=== PATIENT | male | born 1945 | race Caucasian/White ===

== ENCOUNTER 2024-09-12 22:44 | Inpatient (IN) | payer MEDICARE, OTHER, SELFPAY ==
--- NOTE | 2024-09-12 17:52 | HPS.HSE ---
Family Physician
<ROSA Pacheco - Last Filed: 09/12/24 18:15>
-
Family Physician: Cm Carmichael
<Chao Mock PA-C - Last Filed: 09/13/24 02:14>
-
Family Physician: Cm Carmichael
Outpatient Mold Filler: Dr. Efren Magallon
Chief Complaint
<ROSA Pacheco - Last Filed: 09/12/24 18:15>
-
Chest pain/SOB
History of Present Illness
78-year-old male with past medical history significant for HTN, TIA in 2009, hyperlipidemia, and BPH presented to [facility] on 09/11 with complaints of chest pain and shortness of breath with minimal exertion. Patient reports that the
symptoms started a few weeks ago but has worsened in the past 2 days. He was admitted to [facility] and found to have negative troponins but was started on a heparin infusion. Left heart cath today revealed severe left main disease and
RCA disease so patient was transferred to [facility] for surgical evaluation.
Primary research assistant professor Dr. Efren Magallon
<Chao Mock PA-C - Last Filed: 09/13/24 02:14>
History of Present Illness
78-year-old male with past medical history significant for HTN, TIA in 2009, hyperlipidemia, and BPH presented to [facility] on 09/11 with complaints of chest pain and shortness of breath with minimal exertion. Patient reports that the
symptoms started a few weeks ago but has worsened in the past 2 days. Pt walks several miles in the morning on regular bases and noted pressure in the throat, which is followed by burping and belching and is relieved with rest. He was admitted to
[facility] and found to have negative troponins but was started on a heparin infusion.
Left heart cath 09/12/24 revealed severe 90% distal left main stenosis, which extends into ostia of LAD and L Circumflex. Ostium LAD with 90% stenosis with moderate stenosis in the prox to mid vessel. Circ has 99% subtotal occlusion at the ostium
extending from the LM with HÉCTOR -3 flow. RCA is medium to large vessel that serves large PDA and 3 small-med PLBs. There is 50-60% prox-mid stenosis.
Echo 09/12/24 revealed LVEF 45-50%, mild to moderately dilated left atrium. There is trivial anterior and posterior pericardial effusion. Mildly elevated pulmonary artery systolic pressure 31 mmHg. Mildly dilated aortic root, measuring 38 mm in
maximal diameter at the level of the coronary sinus of Valsalva. Grade I diastolic dysfunction.
Pt was sent to for evaluation for CABG. He has been on iv Heparin. He noted 1-2 chest pressure during his ride in an ambulance, which resolved during our conversation. He appears comfortable, good historian. He states that his ECG always showed
'extra beats' and that he follows with Dr. Magallon for dilated aorta and gets Echo every year.
Medical History
<ROSA Pacheco - Last Filed: 09/12/24 18:15>
Past Medical History
Past Medical History: Reports Other
Additional Past Medical History:
HTN
HLD
BPH
SUZANNE on CPAP
Allergies / Home Medications
Allergies reflects when Allergies were last updated in [facility].
Home Medications with original date entered in [facility]
<Chao Mock PA-C - Last Filed: 09/13/24 02:14>
Past Medical History
Additional Past Medical History:
HTN
HLD
TIA in 2009 (no deficits)
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
Asymptomatic PVCs
BPH
UTI complicated by [facility] 02/2022
SUZANNE on CPAP
Hepatitis A at 16 yo
Hx nearsyncope 01/2018
Hx colitis
Hx shingles
Past Surgical History: Reports Appendectomy (laparoscopic repair of ruptured appendix 04/2024)
Additional Past Surgical History:
R groin hernia repair 04/2014
Colonoscopy with polyps removed (benign)
Social History
Tobacco: Former Smoker (started at 18yo and quit at 30 yo)
Alcohol: None
Drug: None
Personal:
Living: Alone
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
Family History
Family History: CAD, Diabetes (type I diabetes on mother's side of the family) and Other (Mother of breast CA at age 47. Father dies at 71 yo from [place]. )
Allergies / Home Medications
Allergy/Medication List:
Allergies
Allergy/AdvReac Type Severity Reaction Status Date / Time
No Known Allergies Allergy Unverified 09/12/24 22:54
Home Medication List (Pre admission)
�Medication �Instructions �Recorded
aspirin 81 mg tablet 81 mg PO DAILY 09/12/24
losartan 100 mg tablet 100 mg PO DAILY 09/12/24
rosuvastatin 20 mg tablet 20 mg PO DAILY 09/12/24
tamsulosin 0.4 mg capsule 0.8 mg PO HS 09/12/24
Review of Systems
<Chao Mock PA-C - Last Filed: 09/13/24 02:14>
-
History Source: Patient and Transfer Record
A 12 point ROS was completed and negative except as noted: Yes
Constitutional: Reports No Symptoms
EENT: Reports No Symptoms
Respiratory: Reports No Symptoms
Cardiac: Reports Chest Pain
Abdomen/GI: Reports No Symptoms
: Reports No Symptoms
Musculoskeletal: Reports No Symptoms
Skin: Reports No Symptoms
Neurological: Reports No Symptoms
Endocrine: Reports No Symptoms
Hematologic/Lymphatic: Reports No Symptoms
Psych: Reports No Symptoms and Calm
Physical Exam
<Chao Mock PA-C - Last Filed: 09/13/24 02:14>
Physical Exam
General: Well Developed, Well Nourished, No Apparent Distress, Comfortable and Conversant
HEENT: NormoCephalic, Anicteric, Moist mucous membranes, Atraumatic and PERRLA
Cardiac: S1/S2, Regular Rhythm (with extra beats. No murmur or rub. No peripheral edema) and Other (No carotid bruits b/l)
GI: Soft, Non Tender, Non Distended and Normal Bowel Sounds (+ BM 09/12 and 09/11)
Genito-urinary: Clear Urine
Musculoskeletal: No Clubbing, No Cyanosis and No Edema
Skin: Warm and Dry
Neuro: Awake and AO x 3
Psych: Calm
Laboratory Results
<Chao Mock PA-C - Last Filed: 09/13/24 02:14>
-
PT 14.2 Sec (11.4-14.6) 09/13/24 00:00
INR 1.05 09/13/24 00:00
APTT 34.2 Sec (23.4-35.0) 09/13/24 00:00
Abnormal Lab Results
09/12/24 09/12/24 09/12/24
23:17 23:17 23:17
RBC 4.25 L 4.18 L
Hct 37.6 L 37.6 L
MCH 31.1 H
MPV 11.8 H
APTT
Total Bilirubin
09/12/24
23:17
RBC
Hct
MCH
MPV 11.7 H
APTT 36.7 H
Total Bilirubin 1.4 H
Data Reviewed
<ERAN López Last Filed: 09/13/24 02:14>
-
Medical Tests (Nuc Med, Echo, EKG etc): Report Reviewed by me
Lab Data: Labs Reviewed by me
Old Records: Reviewed
Impression/Plan
<ROSA Pacheco - Last Filed: 09/12/24 18:15>
-
IMPRESSION:
78 y/o male with PMHx listed above presents to on 09/12 from [facility] for CABG evaluation.
PLAN:
#CAD
-Patient's case will be discussed with attending physician. Further details regarding surgical timing intervention will be determined after attending physicians full evaluation
-Routine preoperative cardiothoracic surgery orders will be initiated.
-STS risk stratification score will be calculated after preoperative testing is complete
-Continue heparin gtt; monitor for CP
#SUZANNE
-Home CPAP HS
#BPH
-Continue Flomax
#Hypertension
-Continue metoprolol and valsartan
-Will need to stop valsartan 2 days before surgery
<Chao Mock PA-C - Last Filed: 09/13/24 02:14>
-
IMPRESSION:
78 y/o male with PMHx listed above presents to on 09/12 from [facility] for CABG evaluation.
PLAN:
#CAD
-Patient's case will be discussed with attending physician. Further details regarding surgical timing intervention will be determined after attending physicians full evaluation
-Routine preoperative cardiothoracic surgery orders will be initiated.
-STS risk stratification score will be calculated after preoperative testing is complete
-Continue heparin gtt; monitor for CP
-Continue ASA, Toprol, statin
#PVCs
-gave extra Lopressor. May consider increasing BB if hr tolerates
#SUZANNE
-Home CPAP HS
#BPH
-Continue Flomax
#Hypertension
-Continue metoprolol and valsartan
-Will need to stop valsartan 2 days before surgery
#Hyperlipidemia
-continue Lipitor
#Hx TIA 2010
-no neuro deficits
[2024-09-12 22:55] VITALS: BP 172/76
[2024-09-12 23:04] VITALS: BP 156/102
[2024-09-12 23:06] VITALS: BP 157/102; BMI 24.3
[2024-09-12] MEDS: FLOMAX PO (23:30)
[2024-09-12 23:39] LABS: Hematocrit 37.6 % (39.0-52.0); Hemoglobin 13.1 g/dL (13.0-18.0); Mean Corp Hgb Conc. 34.6 g/dL (33.0-37.0); Mean Corp Hgb Conc. 34.8 g/dL (33.0-37.0); Mean Corpuscular Hgb 30.8 pg (27.0-31.0); Mean Corpuscular Hgb 31.1 pg (27.0-31.0); Mean Corpuscular Volume 88.5 fL (80.0-94.0); Mean Platelet Volume 11.7 fL (7.4-10.4); Mean Platelet Volume 11.8 fL (7.4-10.4); Platelet Count 141 10^3/uL (130-400); Platelet Count 153 10^3/uL (130-400); Red Blood Cell Count 4.18 10^6/uL (4.70-6.10); Red Blood Cell Count 4.25 10^6/uL (4.70-6.10); Red Cell Dist. Width 13.2 % (11.5-14.5); Red Cell Dist. Width 13.4 % (11.5-14.5); White Blood Cell Count 6.7 10^3/uL (4.8-10.8); White Blood Cell Count 6.9 10^3/uL (4.8-10.8)
[2024-09-12 23:40] VITALS: BP 153/76
[2024-09-12 23:41] LABS: APTT 36.7 Sec (23.4-35.0)
[2024-09-12] MEDS: LOPRESSOR 12.5 MG PO (23:43)
[2024-09-12 23:54] LABS: ALT (SGPT) 22 U/L (0-50); AST (SGOT) 23 U/L (17-59); Albumin 4.2 g/dl (3.5-5.0); Alkaline Phosphatase 76 U/L (38-126); Blood Urea Nitrogen 13 mg/dl (9-20); Carbon Dioxide 27 mmol/L (22-30); Chloride 105 mmol/L (98-107); Estimated Creatinine Clearance 79 ml/min; Glucose 87 mg/dl (70-99); Potassium 3.9 mmol/L (3.5-5.1); Sodium 137 mmol/L (135-145); Total Bilirubin 1.4 mg/dl (0.2-1.3); Total Protein 6.6 g/dl (6.3-8.2); eGFR > 60.00
[2024-09-13] VITALS (11 sets, daily range): BP systolic 115–167; BP diastolic 52–113; PULSE 69–80; BMI 24.1
[2024-09-13 00:17] LABS: Urine Albumin Negative (Neg - Trace); Urine Bilirubin Negative (Negative); Urine Character Clear (Clear); Urine Color Yellow; Urine Glucose Negative (Negative); Urine Ketone Negative (Negative); Urine Leukocyte Negative (Negative); Urine Nitrite Negative (Negative); Urine Occult Blood Negative (Negative); Urine Specific Gravity 1.005 (<1.030); Urine Urobilinogen Negative (Neg - 1+)
[2024-09-13 00:27] LABS: INR 1.05; PT 14.2 Sec (11.4-14.6)
[2024-09-13 00:28] LABS: APTT 34.2 Sec (23.4-35.0)
[2024-09-13] MEDS: HEPARIN 25000 UNITS/250 ML IV ×2 (00:37→21:48)
--- NOTE | 2024-09-13 01:03 | PTCARENOTE ---
Patient received as transfer from [facility] at approximately 2255 on 09/12/24. Patient ambulated from EMS stretcher to the bed without difficulty. Denies chest pain at this time. Sinus rhythm with PACs, PVCs, and bigeminy on telemetry
monitor. Patient initially on room air with oxygen saturation 97%. Placed on 2L NC per CT Surgery PA-C and will be on CPAP HS. Initial labs drawn and sent. Heparin gtt initiated at 900 units/hr. Right radial cath site gauze with tegaderm C/D/I,
radial pulse palpable, area soft to palpation. U/A sent per order. MRSA swab sent. Bilateral blood pressures completed. Plan of care discussed with patient. Call jimenez within reach. Care ongoing.
[2024-09-13 06:41] LABS: Hematocrit 35.7 % (39.0-52.0); Hemoglobin 12.5 g/dL (13.0-18.0); Mean Corpuscular Hgb 31.3 pg (27.0-31.0); Mean Corpuscular Volume 89.3 fL (80.0-94.0); Mean Platelet Volume 11.5 fL (7.4-10.4); Platelet Count 141 10^3/uL (130-400); Red Cell Dist. Width 13.2 % (11.5-14.5); White Blood Cell Count 6.1 10^3/uL (4.8-10.8)
[2024-09-13 06:53] LABS: INR 1.05; PT 14.3 Sec (11.4-14.6)
[2024-09-13 06:54] LABS: APTT 39.7 Sec (23.4-35.0)
[2024-09-13 07:27] LABS: Blood Urea Nitrogen 13 mg/dl (9-20); Estimated Creatinine Clearance 79 ml/min; Glucose 93 mg/dl (70-99); eGFR > 60.00
[2024-09-13 07:28] LABS: ALT (SGPT) 19 U/L (0-50); AST (SGOT) 22 U/L (17-59); Albumin 3.7 g/dl (3.5-5.0); Alkaline Phosphatase 66 U/L (38-126); Calcium 8.7 mg/dl (8.4-10.2); Carbon Dioxide 26 mmol/L (22-30); Chloride 107 mmol/L (98-107); Direct Bilirubin 0.2 mg/dl (0.0-0.4); HDL Cholesterol 81 mg/dl; LDL Cholesterol, Calculated 52 mg/dl; Potassium 4.1 mmol/L (3.5-5.1); Sodium 138 mmol/L (135-145); Total Bilirubin 1.4 mg/dl (0.2-1.3); Total Cholesterol 143 mg/dl (50-199); Total Protein 5.9 g/dl (6.3-8.2); Triglyceride 53 mg/dl (10-149); Very Low Density Lipoprotein 10 mg/dl (0-30)
--- NOTE | 2024-09-13 09:50 | W.PN.CT ---
Today's Communication / Plan
-
Continue preoperative diagnostic testing
Surgical plan and timing TBD
Hold losartan 2 days prior to surgery
Assessment / Plan
-
Assessment:
Multivessel coronary artery disease status post cardiac cath at [facility].
Hypertension
Hyperlipidemia
BPH
TIA 2009
SUZANNE on CPAP at home
Mildly dilated aortic root 42 mm
History of colitis
History of shingles
Former smoker
Plan:
Preoperative diagnostic studies ordered
Will need to hold losartan 2 days prior to surgery
Surgical plan and timing TBD
Discussed patient care with: Cardiology and Nursing
Subjective
Procedure
Patient transferred from [facility] yesterday. Found to have severe left main coronary artery disease. Preoperative studies ordered. Plan for CABG next week.
Sitting up in bed no complaints. Denies chest pain shortness of breath.
-
Date of Service: September 13, 2024
Objective Data
-
Lab Results
09/13/24 06:30
09/13/24 06:30
PT 14.3 Sec (11.4-14.6) 09/13/24 06:30
INR 1.05 09/13/24 06:30
APTT 39.7 Sec (23.4-35.0) H 09/13/24 06:30
Vital Signs
Vital Signs
Temp Pulse Resp BP Pulse Ox
98.5 F 69 18 132/76 95
09/13/24 08:36 09/13/24 08:23 09/13/24 08:36 09/13/24 08:23 09/13/24 08:36
CT Intake/Output/Weight
09/12/24 09/13/24 09/13/24
18:59 06:59 18:59
Intake Total 63 / 63
Output Total 750 / 750
Balance -687 / -687
SaO2: 95
Physical Exam
-
General: Awake, Oriented and AOx3
Cardiovascular: Regular rate & rhythm
Respiratory: Clear
Extremities: No Edema
Data Reviewed
-
Lab Results: Results Reviewed
Medications: Active Meds Reviewed
Chest X-Ray: Report Reviewed
ECG: Report Reviewed
[2024-09-13] MEDS: LOW STRENGTH ASPIRIN 81 MG PO (10:12)
[2024-09-13] MEDS: TOPROL XL 25 MG PO (10:12)
[2024-09-13 10:16] LABS: Glycohemoglobin (HgbA1c) 5.3 % (4.0-5.6)
--- NOTE | 2024-09-13 10:17 | CON.CAR ---
Consultation
Consultation Request
Date/Time Consultation Requested: 09/13/24 7:30a
Date/Time Consultation Performed: 09/13/24 10:15a
Requesting Provider: ROSA Pacheco
Performing Provider: ROSA Jaimes for Dr. Soriano
Reason for Consultation: chest pain/CAD/CABG evaluation
Medical History
-
Chief Complaint: chest pain
History of Present Illness:
Mr. Vargas is a 78 yo male with HTN, HLD, TIA, BPH, who c/o chest pain and CARBONE and went to [facility] ER 09/11/24. LHC 09/12/24 showed severe distal LM disease extending into LAD and LCx and RCA disease. Echo 09/12/24 with LVEF 45-50%. He was transferred
to for CABG evaluation. He has been on IV Heparin and CT surgery plans for CABG next week. He denies any chest pain or CARBONE with rest.
Past Medical History
Past Medical History: Other (as above.)
Social History
Tobacco: Former Smoker
Alcohol: Occasional (1-2 drinks on weekends)
Living: Alone
Employment: Retired
Family History
Family History: Reviewed & Not Pertinent
Allergies / Home Medications
Allergy/AdvReac Type Severity Reaction Status Date / Time
No Known Allergies Allergy Unverified 09/12/24 22:54
�Medication �Instructions �Recorded �Confirmed �Type
aspirin 81 mg tablet 81 mg PO DAILY 09/12/24 09/12/24 History
losartan 100 mg tablet 100 mg PO DAILY 09/12/24 09/12/24 History
rosuvastatin 20 mg tablet 20 mg PO DAILY 09/12/24 09/12/24 History
tamsulosin 0.4 mg capsule 0.8 mg PO HS 09/12/24 09/12/24 History
Review of Systems
-
History Source: Patient
All other systems: Negative unless noted
Physical Exam
Vital Signs
Temp Pulse Resp BP Pulse Ox
98.5 F 69 18 132/76 95
09/13/24 08:36 09/13/24 08:23 09/13/24 08:36 09/13/24 08:23 09/13/24 09:55
Lab Results
09/13/24 06:30
09/13/24 06:30
Physical Exam
General: Well Developed, Well Nourished and No Apparent Distress
HEENT: Normocephalic, Anicteric and Moist Mucous Membranes
Respiratory: Clear and Non Labored Respirations
Cardiac: S1/S2 and Regular Rhythm
Breast: Deferred by me
GI: Soft, Non Tender and Normal Bowel Sounds
Genito-urinary: Clear Urine
Musculoskeletal: No Clubbing, No Cyanosis and No Edema
Skin: Warm and Dry
Neuro: AO x 3
Hematologic/Lymphatic: No Lymphadenopathy
Psych: Calm
Impression / Plan
-
CAD - multivessel CAD on cath 09/12/24.
- CT surgery evaluation, plan for CABG next week.
HTN - on Losartan at home.
- holding it prior to CABG.
- monitor BP, if elevated then consider BB.
HLD - on Crestor.
- check lipids.
TIA - in 2009, stable.
BPH - stable on Flomax.
Testing reviewed:
LHC 09/12/24: severe 90% distal left main stenosis, which extends into ostia of LAD and L Circumflex. Ostium LAD with 90% stenosis with moderate stenosis in the prox to mid vessel. Circ has 99% subtotal occlusion at the ostium extending from the LM
with HÉCTOR -3 flow. RCA is medium to large vessel that serves large PDA and 3 small-med PLBs. There is 50-60% prox-mid stenosis.
Echo 09/12/24: LVEF 45-50%, mild to moderately dilated left atrium, trivial anterior and posterior pericardial effusion. Mildly elevated PASP 31 mmHg. Mildly dilated aortic root, measuring 38 mm in maximal diameter at the level of the coronary sinus
of Valsalva. Grade I DD.
Data Reviewed
-
EKG: Tracing Personally Visualized and interpreted (SR with sinus arrhythmia, PVCs 64 bpm, nonspecific T wave abn)
Medical Tests (Nuc Med, Echo etc): Report Reviewed by me ([facility] 09/12/24: severe 90% distal LM, extends into ostia of LAD and L Cx. Ostium LAD with 90% stenosis with moderate stenosis in prox to mid vessel. Cx has 99% subtotal occlusion at the ostium
extending from the LM with HÉCTOR -3 flow. RCA is medium to large vessel abelardo) and Other (Echo 09/12/24: LVEF 45-50%, mild to moderately dilated left atrium, trivial anterior and posterior pericardial effusion. Mildly elevated PASP 31 mmHg. Mildly
dilated aortic root, measuring 38 mm in maximal diameter at the level of the coronary sinus of Valsalva. Grade I DD.)
[2024-09-13] MEDS: COZAAR 25 MG PO (10:18)
[2024-09-13] MEDS: FLUSH (NSS) 2 FLUSH IV (10:19)
--- NOTE | 2024-09-13 11:24 | PTCARENOTE ---
Received patient this morning resting in bed. Denies any chest pain or sob. Sent for CT of the chest and carotid u/s. IV heparin infusing as per protocol. Sitting oob in the chair now, call jimenez in reach, brother in visiting.
[2024-09-13 14:08] LABS: APTT 49.4 Sec (23.4-35.0)
--- NOTE | 2024-09-13 15:14 | CM ---
spoke to pt in room, he is prev indep, lives alone in a 2 story home with 10 steps to enter. he has a cpap he uses nightly. we discussed preop CABG teaching including sternal and driving restrictions. he has the ct surgery educ book. he is
agreeable to a f/u visit from the ct transitional care nurse after dc. his sister will be staying with his for at least a few days after dc. plan is for CABG 09/17, cm role explained and all questions answered.
[2024-09-13] MEDS: LIPITOR 40 MG PO (17:07)
--- NOTE | 2024-09-13 17:41 | W.PN.UPDATE ---
Update Note
Progress Note Update
STS RISK SCORE
Procedure Type:�Isolated CABG
Perioperative Outcome Estimate %
Operative Mortality 0.943%
Morbidity & Mortality 4.01%
Stroke 0.415%
Renal Failure 0.508%
Reoperation 2.27%
Prolonged Ventilation 1.78%
Deep Sternal Wound Infection 0.047%
Long Hospital Stay (>14 days) 2.45%
Short Hospital Stay (<6 days)* 56%
Clinical Summary
Planned Surgery: Isolated CABG, Urgent, First cardiovascular surgery
Demographics: 78 year old, White, male, 76.3kg, 178cm, BMI: 24.1 kg/m�
Lab Values: Creatinine: 0.8 mg/dL, Hematocrit: 35.7%, WBC Count: 6.1 10�/�L, Platelet Count: 953673 cells/�L
Substance Abuse: Former smoker
Risk Factors / Comorbidities: Hypertension
Pulmonary RF: Sleep Apnea
Cardiac Status: NYHA Class II, Ejection Fraction = 47%
Coronary Artery Disease: Stable Angina
Valve Disease: Trivial/Trace AR, Trivial/Trace MR, Mild TR
[2024-09-13] MEDS: NITROGLYCERIN PREMIX 250 IV (19:31)
[2024-09-13] MEDS: FLOMAX 0.8 MG PO (21:47)
[2024-09-13 21:50] LABS: APTT 79.7 Sec (23.4-35.0)
[2024-09-14] VITALS (13 sets, daily range): BP systolic 106–169; BP diastolic 64–97; PULSE 77; BMI 24.2; BMI 24.3
--- NOTE | 2024-09-14 01:07 | W.PN.CT ---
Addendum entered and electronically signed by Juve Yoder MD 09/14/24 09:45:
I saw and examined the patient.
The PA's note was reviewed and I agree with the note.
Comment:
Tentatively for CABG on Monday second case
Continue heparin and ntg gtts
Monitor for any CP
Original Note:
Today's Communication / Plan
-
Plan:
-after coming from the bathroom around 7 pm, pt had 1/10 CP with burping, which is same as his sxs at home after exertion. BP was 160s. CP resolved spontaneously after 2-3 min. Started iv Nitro. Continue iv Heparin
-preoperative diagnostic studies ordered
- Carotids <50% b/l.
- Chest CT: No acute disease of the chest. Small pericardial effusion. Overall moderate atherosclerotic vascular disease, greatest in the coronary vessels.
Bilateral calcified and dense pulmonary nodules consistent with benign adenomatous disease.
Additional noncalcified solid bilateral pulmonary nodules. Likely benign. Possibly noncalcified granulomas. Too small for PET imaging. Continued surveillance recommended.
-Losartan last dose today- then hold for surgery
-plans for CABG tentatively on 09/[address] Garcia
Assessment / Plan
-
Assessment:
- Multivessel coronary artery disease- status post cardiac cath at [facility] [address] [facility].
- Left heart cath 09/12/24 revealed severe 90% distal left main stenosis, which extends into ostia of LAD and L Circumflex. Ostium LAD with 90% stenosis with moderate stenosis in the prox to mid vessel. Circ has 99% subtotal
occlusion at the ostium extending from the LM with HÉCTOR -3 flow. RCA is medium to large vessel that serves large PDA and 3 small-med PLBs. There is 50-60% prox-mid stenosis
- EF 45-50%
- Hypertension
- Hyperlipidemia
- BPH
- TIA 2010
- SUZANNE, on CPAP at home
- Mildly dilated aortic root 38 mm by Echo 09/12/24 at [facility]
- History of colitis
- History of shingles
- Former smoker
Discussed patient care with: Nursing and Care Team
Subjective
Procedure
Patient transferred from [facility] yesterday. Found to have severe left main coronary artery disease. Preoperative studies ordered. Plan for CABG next week.
Sitting up in bed no complaints. Denies chest pain shortness of breath.
-
Date of Service: September 14, 2024
Objective Data
-
Lab Results
09/13/24 06:30
09/13/24 06:30
PT 14.3 Sec (11.4-14.6) 09/13/24 06:30
INR 1.05 09/13/24 06:30
APTT 79.7 Sec (23.4-35.0) H 09/13/24 21:31
Vital Signs
Vital Signs
Temp Pulse Resp BP Pulse Ox
98.6 F 57 16 115/52 96
09/13/24 22:28 09/13/24 22:28 09/13/24 22:28 09/13/24 22:28 09/13/24 22:28
CT Intake/Output/Weight
09/13/24 09/13/24 09/14/24
06:59 18:59 06:59
Intake Total 63 / 63 960 / 960
Output Total 750 / 750 1675 / 1875 200 / 1875
Balance -687 / -687 -715 / -915 -200 / -915
SaO2: 96
Physical Exam
-
General: Awake and AOx3
Cardiovascular: Regular rate & rhythm, No Murmurs and No Rub
Respiratory: Clear
Extremities: No Edema
Abdomen: soft, nontender, nondistended
Data Reviewed
-
Lab Results: Results Reviewed
Medications: Active Meds Reviewed
Chest X-Ray: Report Reviewed and Image Reviewed
ECG: Report Reviewed and Image Reviewed
--- NOTE | 2024-09-14 01:55 | PTCARENOTE ---
assumed care at 1900, pt AOX3, tele reading NSR, PVCs, bigeminy in the 50s-60s. Pt. immediately reporting 1/10 chest pressure and burping, similar to symptoms that brought him to [facility] in first place. Symptoms relieved after 2-[address] OBED Mock notified. Nitro gtt started on patient. Heparin gtt at 1300u/hr, PTT drawn at 2130: therapeutic x1, next PTT at 4am. This RN discussed POC with pt. Pt. verbalizes understanding. Call jimenez within reach. Continuing to
monitor at this time.
[2024-09-14 04:08] LABS: APTT 108.4 Sec (23.4-35.0)
[2024-09-14] MEDS: COZAAR 25 MG PO (07:57)
[2024-09-14] MEDS: TOPROL XL 25 MG PO (07:57)
[2024-09-14] MEDS: LOW STRENGTH ASPIRIN 81 MG PO (07:57)
--- NOTE | 2024-09-14 14:40 | W.PN.CD ---
Today's Communication / Plan
-
CABG Monday next week
Impression / Plan
-
CAD - multivessel CAD on cath 09/12/24.
- CT surgery evaluation, plan for CABG next week.
- throat discomfort overnight nitro gtt started feeling improved
HTN - on Losartan at home.
- holding it prior to CABG.
- monitor BP, if elevated then consider BB.
HLD - on Crestor.
- check lipids.
TIA - in 2009, stable.
BPH - stable on Flomax.
Subjective: Feels OK today
Testing reviewed:
LHC 09/12/24: severe 90% distal left main stenosis, which extends into ostia of LAD and L Circumflex. Ostium LAD with 90% stenosis with moderate stenosis in the prox to mid vessel. Circ has 99% subtotal occlusion at the ostium extending from the LM
with HÉCTOR -3 flow. RCA is medium to large vessel that serves large PDA and 3 small-med PLBs. There is 50-60% prox-mid stenosis.
Echo 09/12/24: LVEF 45-50%, mild to moderately dilated left atrium, trivial anterior and posterior pericardial effusion. Mildly elevated PASP 31 mmHg. Mildly dilated aortic root, measuring 38 mm in maximal diameter at the level of the coronary sinus
of Valsalva. Grade I DD.
Physical Exam
Vital Signs/Labs
Vital Signs
Temp Pulse Resp BP Pulse Ox
98 F 74 18 113/69 100
09/14/24 12:03 09/14/24 07:48 09/14/24 12:03 09/14/24 07:48 09/14/24 12:03
09/13/24 09/14/24 09/15/24
06:59 06:59 06:59
Actual Weight 168 lb 3.403 oz 168 lb 6.931 oz 169 lb 1.513 oz
09/13/24 06:30
09/13/24 06:30
PT 14.3 Sec (11.4-14.6) 09/13/24 06:30
INR 1.05 09/13/24 06:30
APTT 108.4 Sec (23.4-35.0) H 09/14/24 03:13
Triglycerides 53 mg/dl (10-149) 09/13/24 06:30
LDL Cholesterol, Calc 52 mg/dl 09/13/24 06:30
VLDL Cholesterol, Calc 10 mg/dl (0-30) 09/13/24 06:30
HDL Cholesterol 81 mg/dl 09/13/24 06:30
Physical Exam
Constitutional: No acute distress and Comfortable
EENT: Anicteric
Cardiovascular: Rhythm & rate is regular and Pedal edema present (trace)
Respiratory: Respiratory effort normal and Lungs clear to auscul.
GI: Soft
Neuro/Psych: AO x 3
Data Reviewed
-
Date of Service: September 14, 2024
EKG: Tracing Personally Visualized and interpreted (sr)
Echo: Report Reviewed by me
Labs: Labs Reviewed by me
[2024-09-14] MEDS: HEPARIN 25000 UNITS/250 ML IV (15:17)
--- NOTE | 2024-09-14 16:43 | PTCARENOTE ---
assessment stable as documented, no complaints throughout day. Pt OOB most of day with many visitors.
[2024-09-14] MEDS: LIPITOR 40 MG PO (17:28)
[2024-09-14] MEDS: NITROGLYCERIN PREMIX 250 IV (19:45)
--- NOTE | 2024-09-14 20:17 | PTCARENOTE ---
pt. received at change of shift. pt seen and assessed in room. AOx3, tele reading NSR w PVCs in the 70s. no complaints of pain at this time. heparin gtt continuing to run at 1300u/hr. next PTT with morning labs. this RN discussed POC with pt, pt
verbalizes understanding. call jimenez within reach. continuing to monitor at this time.
--- NOTE | 2024-09-14 20:37 | PTCARENOTE ---
nitro gtt restarted per order. titrating per order. pt. verbalizes understanding for restarting nitro gtt.
[2024-09-14] MEDS: FLOMAX 0.8 MG PO (21:10)
[2024-09-15] VITALS (10 sets, daily range): BP systolic 112–157; BP diastolic 49–80; BMI 24.2; BMI 24.3
[2024-09-15 04:31] LABS: Hematocrit 35.3 % (39.0-52.0); Mean Corpuscular Hgb 30.6 pg (27.0-31.0); Mean Corpuscular Volume 90.1 fL (80.0-94.0); Platelet Count 141 10^3/uL (130-400); Red Blood Cell Count 3.92 10^6/uL (4.70-6.10); Red Cell Dist. Width 13.2 % (11.5-14.5); White Blood Cell Count 6.9 10^3/uL (4.8-10.8)
[2024-09-15 04:39] LABS: APTT 110.6 Sec (23.4-35.0)
[2024-09-15 05:10] LABS: Blood Urea Nitrogen 20 mg/dl (9-20); Calcium 8.8 mg/dl (8.4-10.2); Carbon Dioxide 23 mmol/L (22-30); Chloride 106 mmol/L (98-107); Estimated Creatinine Clearance 69 ml/min; Glucose 90 mg/dl (70-99); Magnesium 2.2 mg/dl (1.6-2.3); Potassium 3.7 mmol/L (3.5-5.1); Sodium 137 mmol/L (135-145); eGFR > 60.00
--- NOTE | 2024-09-15 05:56 | W.PN.CT ---
Addendum entered and electronically signed by Juve Yoder MD 09/15/24 11:07:
CARDIAC SURGERY ATTENDING:
I had a long conversation with Mr. Vargas at his bedside. His brother was present during our conversations. We reviewed his coronary pathology, discussed the proposed operative interventions, reviewed the operative procedure in great detail,
discussed the periprocedural risks (including, but not limited to, , stroke, FL, arrhythmia, PNA, WILLIAM/F, bleeding, and infection), reviewed the expected in-hospital postprocedural course, and discussed expected outpatient recovery. All
questions were answered to the best of my abilities. The patient is agreeable to proceed. I will plan for operative intervention tomorrow 09/16/2024 as second case. I anticipate CABG x 3-4 with KE to LAD, GSV to OM, and GSV to distal right/PDA.
His second and third diagonal branches will be inspected intraoperatively for the potential of an additional bypass to 1 of these 2 vessels.
Please call with any questions or concerns.
Thank you for the opportunity to participate in the care of this kind patient.
Juve Yoder MD
[phone]
Addendum entered and electronically signed by Juve Yoder MD 09/15/24 09:40:
I saw and examined the patient.
The PA's note was reviewed and I agree with the note.
Comment:
Continue NTG and Heparin
OR for CABG tomorrow 2nd case
Original Note:
Today's Communication / Plan
-
-No overnight events
-Nitro drip had been titrated off for pain in the chest. Throat discomfort again occurred this evening which resolved after nitro drip restarted. Reinforced with nursing to keep nitro infusion ongoing unless otherwise specified
-Continue heparin drip
-Losartan last dose 09/14, will plan to titrate nitro for blood pressure goal for now
-Appreciate ongoing cardiology recommendations
-plans for CABG tentatively on 09/[address] Garcia unless clinical course dictates otherwise
Assessment / Plan
-
Assessment:
- Multivessel coronary artery disease- status post cardiac cath at [facility].
- Left heart cath 09/12/24 revealed severe 90% distal left main stenosis, which extends into ostia of LAD and L Circumflex. Ostium LAD with 90% stenosis with moderate stenosis in the prox to mid vessel. Circ has 99% subtotal
occlusion at the ostium extending from the LM with HÉCTOR -3 flow. RCA is medium to large vessel that serves large PDA and 3 small-med PLBs. There is 50-60% prox-mid stenosis
- EF 45-50%
- Hypertension
- Hyperlipidemia
- BPH
- TIA 2010
- SUZANNE, on CPAP at home
- Mildly dilated aortic root 38 mm by Echo 09/12/24 at [facility]
- History of colitis
- History of shingles
- Former smoker
Subjective
-
Date of Service: September 15, 2024
Objective Data
-
Lab Results
09/15/24 04:17
09/15/24 04:17
PT 14.3 Sec (11.4-14.6) 09/13/24 06:30
INR 1.05 09/13/24 06:30
APTT 110.6 Sec (23.4-35.0) H 09/15/24 04:17
Vital Signs
Vital Signs
Temp Pulse Resp BP Pulse Ox
98.3 F 64 20 112/49 98
09/15/24 04:13 09/15/24 05:15 09/15/24 04:13 09/15/24 04:00 09/15/24 04:13
CT Intake/Output/Weight
09/14/24 09/14/24 09/15/24
06:59 18:59 06:59
Intake Total 96 / 1056 200 / 200
Output Total 300 / 1975 500 / 1450 950 / 1450
Balance -204 / -919 -300 / -1250 -950 / -1250
SaO2: 98
Physical Exam
-
General: Awake, Oriented and AOx3
Cardiovascular: Regular rate & rhythm, No Murmurs and No Rub
Respiratory: Clear and Equal
Extremities: No Edema and No Erythema
Data Reviewed
-
Lab Results: Results Reviewed
Medications: Active Meds Reviewed
Chest X-Ray: Report Reviewed
ECG: Report Reviewed
[2024-09-15] MEDS: LOW STRENGTH ASPIRIN 81 MG PO (08:16)
[2024-09-15] MEDS: TOPROL XL 25 MG PO (08:16)
[2024-09-15] MEDS: HEPARIN 25000 UNITS/250 ML IV (11:36)
--- NOTE | 2024-09-15 15:13 | PTCARENOTE ---
received patient this am, monitor shows NSR with KRISTA hernandez. patient has many visitors throughout the day, surgeon was in speaking with patient as well as anesthesia. type and screen drawn and sent to lab.IV heparin @ 1300units/hr and IV
nitroglycerin @ 5mcg/min via left arm without difficulties.
[2024-09-15] MEDS: LIPITOR 40 MG PO (17:11)
--- NOTE | 2024-09-15 20:00 | PTCARENOTE ---
report received from IVU RN, received pt into room 2262. VSS. pt AAOx4. denies any pain at this time. heparin gtt infusing @ 13,000 units/kg/hr. Nitro gtt infusing @ 5mcg. B/L radial and DP pulses palpable, heart tones clear. B/L breath sounds
present. POX 97% on room air. skin CDI. PIV x3 intact and patent. see worklist for full assessment, VS, and interventions. pt resting comfortably in bed w call jimenez in reach.
--- NOTE | 2024-09-15 21:00 | PTCARENOTE ---
clip prep completed. pt given complete bed bath w CHG surgical soap. gown, linens, and electrodes changed.
[2024-09-15] MEDS: FLOMAX 0.8 MG PO (21:15)
[2024-09-16] VITALS (22 sets, daily range): BP systolic 79–145; BP diastolic 54–78; PULSE 63; BMI 24.2
--- NOTE | 2024-09-16 05:30 | PTCARENOTE ---
no changes in assessment, VSS. SR w PVCs. POX 99% on room air. Heparin gtt and Nitro gtt maintained. no CP. AM labs drawn and sent. 2nd bath given w CHG surgical wipes. pt wiped w CHG cloths. gown, linens, and electrodes changed. pre-op meds given.
pt sleeping between care.
[2024-09-16] MEDS: LOPRESSOR 25 MG PO (05:37)
[2024-09-16] MEDS: MAGNESIUM OXIDE 500 MG PO (05:37)
[2024-09-16] MEDS: PROTONIX 40 MG PO (05:37)
[2024-09-16] MEDS: BACTROBAN 2% OINTMENT 1 APPLIC NASAL ×2 (05:40→21:11)
[2024-09-16 06:00] LABS: Hemoglobin 11.2 g/dL (13.0-18.0); Mean Corpuscular Hgb 31.1 pg (27.0-31.0); Mean Corpuscular Volume 88.9 fL (80.0-94.0); Mean Platelet Volume 12.1 fL (7.4-10.4); Platelet Count 136 10^3/uL (130-400); Red Cell Dist. Width 13.2 % (11.5-14.5); White Blood Cell Count 6.4 10^3/uL (4.8-10.8)
[2024-09-16 06:04] LABS: APTT 96.7 Sec (23.4-35.0)
[2024-09-16 06:55] LABS: Blood Urea Nitrogen 20 mg/dl (9-20); Calcium 9.3 mg/dl (8.4-10.2); Carbon Dioxide 25 mmol/L (22-30); Chloride 107 mmol/L (98-107); Estimated Creatinine Clearance 69 ml/min; Glucose 89 mg/dl (70-99); Potassium 4.2 mmol/L (3.5-5.1); Sodium 137 mmol/L (135-145); eGFR > 60.00
--- NOTE | 2024-09-16 08:20 | PTCARENOTE ---
Received pt from power and recovery shift engineer RN; Pt AAOx3; NSR PACs on monitor and VSS; PIV x3 all patent; Heparin and Nitro infusing see flow sheet for details; lungs clear; IS to 2000; positive bowel sounds; pt voiding yellow urine; palpable pulses throughout;
trace ankle edema; pt NPO awaiting CVOR; see nursing documentation for further details.
--- NOTE | 2024-09-16 08:20 | CM ---
Reviewed chart. Mr. Vargas is in the operating room today. Prior to admission he resides in a two story home with ten steps to enter. Prior to admission he was independent with ambulation and adls. He has a CPAP Machine at home. His sister will
stay with him a few days at home to assist in his care if needed. Medical work-up in progress. The discharge plan is to return home with his sister staying a few days and a home visit by the Transitional Care Nurse when medically stable.
[2024-09-16] MEDS: HEPARIN 25000 UNITS/250 ML IV (08:28)
[2024-09-16] MEDS: LOW STRENGTH ASPIRIN PO (09:03)
[2024-09-16] MEDS: TOPROL XL PO (09:03)
--- NOTE | 2024-09-16 12:23 | PTCARENOTE ---
Report given to CVOR RN; pt transferred to CVOR via bed.
[2024-09-16 13:00] LABS: Urine Albumin 1+ (Neg - Trace); Urine Bilirubin Negative (Negative); Urine Character Clear (Clear); Urine Color Yellow; Urine Glucose Negative (Negative); Urine Ketone Negative (Negative); Urine Leukocyte Negative (Negative); Urine Nitrite Negative (Negative); Urine Occult Blood Negative (Negative); Urine Urobilinogen Negative (Neg - 1+)
[2024-09-16 13:16] LABS: ACT+ - POC 123 Seconds (82-134)
[2024-09-16 14:01] LABS: Urine Amorphous Seen
[2024-09-16 14:02] LABS: Urine Red Blood Cell 0-2 /HPF (0-2); Urine White Cell 0-2 /HPF (0-5)
[2024-09-16 14:03] LABS: Urine Granular Cast 0-2 /LPF (0)
[2024-09-16 14:42] LABS: B.E. - POC -0.5 mmol/L; Glucose - POC 94 mg/dl (70-99); HCO3 - POC 24 mmol/L (21-28); Hematocrit - POC 31 % PCV (42-52); Hemodilution- POC No; Hemoglobin Calculated - POC 10.6; Ionized Calcium - POC 1.31 mmol/L (1.15-1.33); Lactate - POC 0.52 mmol/L (0.36-0.75); O2 Saturation %Calculated-POC 99.8 % (94-98); PCO2 - POC 38 mmHg (35-48); PO2 - POC 241 mmHg (83-108); Sodium - POC 140 mmol/L (136-145); Specimen Type - POC Arterial; pH - POC 7.41 (7.35-7.45)
[2024-09-16 14:47] LABS: ACT+ - POC 422 Seconds (82-134)
[2024-09-16 14:57] LABS: ACT+ - POC 482 Seconds (82-134)
[2024-09-16 15:28] LABS: ACT+ - POC 427 Seconds (82-134)
[2024-09-16 15:36] LABS: B.E. - POC 1.2 mmol/L; Glucose - POC 97 mg/dl (70-99); HCO3 - POC 25 mmol/L (21-28); Hematocrit - POC 30 % PCV (42-52); Hemodilution- POC No; Hemoglobin Calculated - POC 10.3; Ionized Calcium - POC 1.26 mmol/L (1.15-1.33); Lactate - POC 0.73 mmol/L (0.36-0.75); O2 Saturation %Calculated-POC 99.9 % (94-98); PCO2 - POC 38 mmHg (35-48); PO2 - POC 249 mmHg (83-108); Sodium - POC 138 mmol/L (136-145); Specimen Type - POC Arterial; pH - POC 7.43 (7.35-7.45)
[2024-09-16 15:44] LABS: ACT+ - POC 609 Seconds (82-134)
[2024-09-16 16:30] LABS: ACT+ - POC 533 Seconds (82-134)
[2024-09-16 17:00] LABS: B.E. - POC -0.9 mmol/L; Glucose - POC 182 mg/dl (70-99); HCO3 - POC 26 mmol/L (21-28); Hematocrit - POC 32 % PCV (42-52); Hemodilution- POC Yes; Ionized Calcium - POC 1.07 mmol/L (1.15-1.33); Lactate - POC 0.33 mmol/L (0.36-0.75); O2 Saturation %Calculated-POC 99.9 % (94-98); PCO2 - POC 55 mmHg (35-48); PO2 - POC 338 mmHg (83-108); Potassium - POC 4.5 mmol/L (3.5-5.1); Sodium - POC 138 mmol/L (136-145); Specimen Type - POC Arterial; pH - POC 7.29 (7.35-7.45)
[2024-09-16 17:15] LABS: ACT+ - POC 539 Seconds (82-134)
[2024-09-16 17:31] LABS: B.E. - POC -0.8 mmol/L; Glucose - POC 166 mg/dl (70-99); HCO3 - POC 24 mmol/L (21-28); Hematocrit - POC 28 % PCV (42-52); Hemodilution- POC Yes; Hemoglobin Calculated - POC 9.4; Ionized Calcium - POC 1.09 mmol/L (1.15-1.33); Lactate - POC 1.45 mmol/L (0.36-0.75); O2 Saturation %Calculated-POC 99.8 % (94-98); PCO2 - POC 39 mmHg (35-48); PO2 - POC 231 mmHg (83-108); Potassium - POC 3.9 mmol/L (3.5-5.1); Sodium - POC 140 mmol/L (136-145); Specimen Type - POC Arterial; pH - POC 7.39 (7.35-7.45)
[2024-09-16 17:44] LABS: ACT+ - POC 539 Seconds (82-134)
[2024-09-16 18:04] LABS: B.E. - POC -2.1 mmol/L; Glucose - POC 132 mg/dl (70-99); HCO3 - POC 23 mmol/L (21-28); Hematocrit - POC 30 % PCV (42-52); Hemodilution- POC Yes; Hemoglobin Calculated - POC 10.3; Ionized Calcium - POC 1.08 mmol/L (1.15-1.33); Lactate - POC 2.06 mmol/L (0.36-0.75); O2 Saturation %Calculated-POC 99.9 % (94-98); PCO2 - POC 37 mmHg (35-48); PO2 - POC 281 mmHg (83-108); Potassium - POC 3.7 mmol/L (3.5-5.1); Sodium - POC 140 mmol/L (136-145); Specimen Type - POC Arterial; pH - POC 7.39 (7.35-7.45)
[2024-09-16 18:07] LABS: ACT+ - POC 101 Seconds (82-134)
--- NOTE | 2024-09-16 18:32 | W.CVOR.SURPR ---
CVOR Surgeon Immed Pre Op
-
I have examined this patient prior to performance of the scheduled procedure.
The patient's condition is unchanged from the time of the dictated/written History and
Physical and the patient is able to undergo the scheduled procedure.
--- NOTE | 2024-09-16 18:33 | W.IMMPOSTOP ---
Addendum entered and electronically signed by Juve Yoder MD 09/16/24 19:03:
[id number]
Original Note:
Surgical Immed Post Op Note
-
CARDIAC SURGERY OPERATIVE NOTE:
Preoperative Dx:
MVCAD including significant LM CAD
Unstable angina
Postoperative Dx:
Same
Procedure:
1) Median sternotomy
2) Takedown of KE (narrow pedicle)
3) Endoscopic/partial open harvest of RLE GSV
4) Endoscopic/partial open harvest of LLE GSV
5) CABG x 4 (KE to LAD, GSV to D3, GSV to OM1, GSV to RPDA)
Surgeon:
Juve Yoder M.D.
Assistants:
Vivek PetersonABharath-CBharath; export sales assistant
Pierce Castle P.A.-C.; endoscopic/partial open harvest/prep of B/L GSVs, closure; export sales assistant; [id number] closure of sternotomy
Anesthesia:
Julien Pham M.D. and Cm Ellis CBharathR.N.A.
Perfusion:
Chaitanya GallowayC.P.; XC: 96min, CPB 140min
Findings:
KE was healthy conduit w/ very brisk blood flow, ELD 3.5mm
GSV was reasonable conduit w/ several sections w/ varicosities (excluded) and variable wall thickness, ELD 3.5-4.5mm
LAD was visible on the epicardial surface w/ scattered calcifications; ELD 3.0mm at distal midpoint anastomosis
D3 was visible on the epicardial surface w/ scattered calcifications; ELD 2.0mm
OM1 was visible on the epicardial surface w/ scattered calcifications; ELD 3.5mm
RPDA was visible on the epicardial surface w/ scattered calcificaitons; ELD 2.75mm
JUNI: LVEF 40-50%, mild global hypokinesis, mild MR, mild TR, trace AI, pericardial effusion
JUNI-post:LVEF 55-60%, trace MR
Excellent flow in all grafts on transit-time U/S flow probe assessment
Complications:
None
Transfusions:
None
Implants:
CT x 4 (B/L pleural, inferior mediastinal, superior mediastinal)
Sternal wires x 10
Condition:
65 sinus (-0.4/-0.5), 1110/49, 26/7, CVP 5, CO/CI: 5.0/2.6
GTTS: insulin 0.5, precedex 0.5, levophed 6, dobutamine 3
Stable/guarded to CVICU
[2024-09-16 18:35] LABS: B.E. - POC -1.6 mmol/L; Glucose - POC 110 mg/dl (70-99); HCO3 - POC 24 mmol/L (21-28); Hematocrit - POC 27 % PCV (42-52); Hemodilution- POC Yes; Hemoglobin Calculated - POC 9.3; Ionized Calcium - POC 1.21 mmol/L (1.15-1.33); Lactate - POC 2.48 mmol/L (0.36-0.75); O2 Saturation %Calculated-POC 99.9 % (94-98); PCO2 - POC 44 mmHg (35-48); PO2 - POC 267 mmHg (83-108); Potassium - POC 3.5 mmol/L (3.5-5.1); Sodium - POC 143 mmol/L (136-145); Specimen Type - POC Arterial; pH - POC 7.35 (7.35-7.45)
[2024-09-16 19:13] LABS: Glucose - Point of Care 114 mg/dl (70-99)
[2024-09-16 19:19] LABS: B.E. -2.1 mmol/L; HCO3 24.2 mmol/L (21-28); Ionized Calcium 1.18 mMOL/L (1.15-1.33); O2 Saturation % 99.4 % (94-98); PCO2 47 mmHg (35-48); PO2 116 mmHg (83-108); Potassium 3.4 mMOL/L (3.5-5.1); Sodium 138 mMOL/L (136-145); pH 7.32 (7.35-7.45)
[2024-09-16 19:21] LABS: Mixed Venous O2 Saturation 82.9 %
[2024-09-16 19:22] LABS: Hematocrit 29.7 % (39.0-52.0); Hemoglobin 10.3 g/dL (13.0-18.0); Platelet Count 102 10^3/uL (130-400)
[2024-09-16 19:30] LABS: APTT 31.3 Sec (23.4-35.0); INR 1.33; PT 16.8 Sec (11.4-14.6)
--- NOTE | 2024-09-16 19:30 | PTCARENOTE ---
Patient out to CVOR at 1900. Patient with usual lines no wires. Patient currently intubated and sedated. There is an ETT 8.0 sitting 24cm at the lip with ventilator SIMV settings see worklist for parameters. Lung sounds are diminished at the bases
saO2 100% on 60% FiO2. Patient has CTx4: Medsx2 to one atrium and R/L pleural to one atrium draining red sanguineous. CTs to wall suction no air leak or crepitus. Heart sounds are audible, patient is SR with occasional monomorphic PVCs, no
observable edema, and normal palpable pulses. Patient has hypoactive BS throughout all four quadrants of soft nontender abdomen and diaz draining clear yellow urine. Patient has a sternal incision with aquacell dressing that is CDI, an ABD dressing
over CT wounds that is CDI, R groin puncture approx with surg adhesive DONALDO, L medial thigh puncture approx with surg adhesive COMMERCIAL ENGINEER, and TIBURCIO wraps over BLE. Patient has the following lines: R IJ cordis with swan @48 cm, L radial Alexandra, R wrist 20G PIV
and L FA PIV. Patient has the following gtts: Cordis/VIP KVO, Insulin@2.3, Levo@2, Precedex@0.5, Dobut@3. Vital signs as follows: T-95.6 HR-66 BP-122/56 MAP-73 RR-12 CVP-6 PAP-23/9. Labs drawn and sent. Placed on kenn hugger. Hygiene care provided.
[2024-09-16 19:39] LABS: Blood Urea Nitrogen 16 mg/dl (9-20); Estimated Creatinine Clearance 69 ml/min; Glucose 112 mg/dl (70-99); Magnesium 3.4 mg/dl (1.6-2.3)
[2024-09-16] MEDS: LIPITOR PO (19:41)
[2024-09-16] MEDS: NSS 500 IV (19:42)
[2024-09-16] MEDS: NEURONTIN PO ×2 (19:42→22:37)
[2024-09-16] MEDS: TYLENOL PO ×2 (19:42→22:37)
[2024-09-16] MEDS: PACERONE PO (19:42)
[2024-09-16] MEDS: CALCIUM GLUCONATE 100 IV (19:43)
[2024-09-16] MEDS: SENOKOT-S PO (19:43)
[2024-09-16 20:06] LABS: Glucose - Point of Care 75 mg/dl (70-99)
--- NOTE | 2024-09-16 20:55 | PTCARENOTE ---
Patient hypotensive out of CVOR given 500 LR for hypovolemia. iCa borderline 1.[address] PA administer 2g Ca Gluconate. Pending administration of K for hypokalemia. RR on ventilator increased to [address] PA. Precedex tapered to 0.2. Patient labile
especially when showing signs of waking up on/off Levo and Nitro gtt ordered for hypertension.
[2024-09-16 21:03] LABS: Glucose - Point of Care 81 mg/dl (70-99)
[2024-09-16] MEDS: KCL 50 IV ×2 (21:05→22:13)
[2024-09-16] MEDS: OFIRMEV 100 IV (21:16)
[2024-09-16 22:04] LABS: Glucose - Point of Care 114 mg/dl (70-99)
--- NOTE | 2024-09-16 22:24 | PTCARENOTE ---
Patient off precedex now responsive following commands appropriately gripping hand wiggling toes. Given ofirmev for pain. Initiating own breaths on ventilator. RT contacted to start CPAP trial at 2219. Labs scheduled for 2249. SUction provided as
patient inidcated discomfort due to secretions in mouth oral suction provided.
[2024-09-16] MEDS: FLOMAX PO (22:37)
[2024-09-16 22:54] LABS: B.E. -3.5 mmol/L; HCO3 21.4 mmol/L (21-28); Ionized Calcium 1.24 mMOL/L (1.15-1.33); O2 Saturation % 99.6 % (94-98); PCO2 37 mmHg (35-48); PO2 147 mmHg (83-108); pH 7.37 (7.35-7.45)
[2024-09-16 22:59] LABS: Hematocrit 28.2 % (39.0-52.0); Platelet Count 115 10^3/uL (130-400)
[2024-09-16] MEDS: DILAUDID 0.25 MG IV (23:07)
[2024-09-16 23:13] LABS: Glucose - Point of Care 107 mg/dl (70-99)
--- NOTE | 2024-09-16 23:30 | PTCARENOTE ---
Patient extubated at 2305 without incident. Placed on 6L via NC with saO2 at 100%. Patient able to answer all orientation appropriately, moves all extremities appropriately, etc. C/o 6/10 sternal pain given 0.25 dilaudid per orders. Achieved 1000 on
IS. Provided education on activity restrictions. Call jimenez within reach.
[2024-09-17] VITALS (32 sets, daily range): BP systolic 81–143; BP diastolic 45–70; PULSE 67–75; O2SAT 97–99; BMI 24.2
[2024-09-17 00:09] LABS: Glucose - Point of Care 130 mg/dl (70-99)
--- NOTE | 2024-09-17 00:10 | W.PN.CT ---
Assessment / Plan
-
Assessment:
Assessment:
-S/p Median sternotomy/ CABG x 4 (KE to LAD, GSV to D3, GSV to OM1, GSV to RPDA)/Endoscopic/partial open harvest of RLE GSV, by Dr. Yoder, 09/16/24, pod#1
-Severe 3v CAD/90% distal LM
-EF 45-50%, 60-65% postop on dobutamine @ 3 mcg/kg/min per intraop JUNI
-Mild TR
-Trace to mild MR, resolved postop per intraop JUNI
-Small pericardial effusion, resolved postop per intraop JUNI
-Hypertension
-Hyperlipidemia
-BPH/UTI
-Hx of TIA 2009
-SUZANNE, on CPAP at home
-Mildly dilated aortic root 38 mm by Echo 09/12/24 at [facility]
-History of colitis
-History of shingles
-Former smoker (from age [age])
-S/p Lap appendectomy, 04/2024
-S/p Colonoscopy with polypectomy
-S/p Right inguinal herniorrhaphy
-Acute postop blood loss/Anemia (stable without blood transfusion)
-Acute postop atelectasis
-Acute postop hypovolemia with subsequent hypervolemia
Plan:
-No major issues overnight. Hemodynamically and neurologically stable
-Successfully extubated yesterday 09/16 @ 2305
-Weaned off of Levophed gtt last night, remains on insulin gtt per protocol
-Last CI , U/O since OR
-Monitor chest tube output: 2meds, R/L pleurals
-BP soft postop, placed AM dose of BB on hold
-Cont. current meds (ASA, Plavix, Lipitor, Amiodarone)
-D/C'd a-line and swan @
-D/C diaz later today, returned to CVICU from OR ~7pm, has hx of BPH on Flomax @ home
-Will transition to tele phase today once off insulin gtt
-Maintain cordis
-No temporary PW
-Encourage use of IS
-Wean off of O2 as tolerated
-OOB into chair/Ambulate
Subjective
Procedure
Patient transferred from [facility] yesterday. Found to have severe left main coronary artery disease. Preoperative studies ordered. Plan for CABG next week.
Sitting up in bed no complaints. Denies chest pain shortness of breath.
-
Date of Service: September 17, 2024
Objective Data
-
PT 16.8 Sec (11.4-14.6) H 09/16/24 19:09
INR 1.33 09/16/24 19:09
APTT 31.3 Sec (23.4-35.0) 09/16/24 19:09
Vital Signs
Vital Signs
Temp Pulse Resp BP Pulse Ox
98.8 F 77 30 108/52 99
09/17/24 00:00 09/17/24 00:00 09/17/24 00:00 09/17/24 00:00 09/17/24 00:00
CT Intake/Output/Weight
09/16/24 09/16/24 09/17/24
06:59 18:59 06:59
Intake Total 250 / 415.6 843.0 / 843.0
Output Total 550 / 650 150 / 615 465 / 615
Balance -300 / -234.4 -150 / 228.0 378.0 / 228.0
SaO2: 99
--- NOTE | 2024-09-17 00:18 | PTCARENOTE ---
High CI of 3.[address] PA notified and advised lowering Dobut to 2 at this time.
[2024-09-17] MEDS: LOW STRENGTH ASPIRIN 81 MG PO ×2 (02:07→08:29)
[2024-09-17] MEDS: ROXICODONE 5 MG PO (02:07)
[2024-09-17] MEDS: ANCEF 5 IV ×3 (02:08→17:09)
[2024-09-17 02:14] LABS: Glucose - Point of Care 95 mg/dl (70-99)
--- NOTE | 2024-09-17 03:29 | W.PN.CT ---
Today's Communication / Plan
-
Plan:
-No major issues overnight. Hemodynamically and neurologically stable
-Successfully extubated yesterday 09/16 @ 2305
-Weaned off of Levophed and Dobutamine gtt last night, remains on insulin gtt per protocol
-BP soft this AM, Orthostasis when OOB this AM
-Last CI 3.55 (off dobutamine), U/O since OR 655 mL
-Monitor chest tube output: 2meds 180/180, R/L pleurals 95/95
-BP soft postop, placed AM dose of BB on hold
-Cont. current meds (ASA, Plavix, Lipitor, Amiodarone)
-Placed mag oxide on hold, mg 2.6
-D/C'd a-line and swan @ 0452
-D/C idaz later today, returned to CVICU from OR ~7pm, has hx of BPH on Flomax @ home
-Will transition to tele phase today once off insulin gtt
-Maintain cordis
-No temporary PW
-Encourage use of IS
-Wean off of O2 as tolerated
-OOB into chair/Ambulate
Assessment / Plan
-
Assessment:
-S/p Median sternotomy/ CABG x 4 (KE to LAD, GSV to D3, GSV to OM1, GSV to RPDA)/Endoscopic/partial open harvest of RLE GSV, by Dr. Yoder, 09/16/24, pod#1
-Severe 3v CAD/90% distal LM
-EF 45-50%, 60-65% postop on dobutamine @ 3 mcg/kg/min per intraop JUNI
-Mild TR
-Trace to mild MR, resolved postop per intraop JUNI
-Small pericardial effusion, resolved postop per intraop JUNI
-Hypertension
-Hyperlipidemia
-BPH/UTI
-Hx of TIA 2009
-SUZANNE, on CPAP at home
-Mildly dilated aortic root 38 mm by Echo 09/12/24 at [facility]
-History of colitis
-History of shingles
-Hx of hepatitis A at age 16
-Former smoker (from age [age])
-S/p Lap appendectomy, 04/2024
-S/p Colonoscopy with polypectomy
-S/p Right inguinal herniorrhaphy
-Acute postop blood loss/Anemia (stable without blood transfusion)
-Acute postop thrombocytopenia (stable without active bleed)
-Acute postop atelectasis
-Acute postop hypovolemia with subsequent hypervolemia
-Acute postop orthostasis
Discussed patient care with: Cardiology, Nursing, Respiratory Therapy, Pharmacy and Care Team
Subjective
Procedure
S/p Median sternotomy/ CABG x 4 (KE to LAD, GSV to D3, GSV to OM1, GSV to RPDA)/Endoscopic/partial open harvest of RLE GSV, by Dr. Yoder, 09/16/24
-
Date of Service: September 17, 2024
Pt c/o incisional pain, otherwise feels well
Objective Data
-
PT 16.8 Sec (11.4-14.6) H 09/16/24 19:09
INR 1.33 09/16/24 19:09
APTT 31.3 Sec (23.4-35.0) 09/16/24 19:09
Vital Signs
Vital Signs
Temp Pulse Resp BP Pulse Ox
99.6 F 72 14 101/57 99
09/17/24 03:06 09/17/24 03:19 09/17/24 03:19 09/17/24 03:00 09/17/24 03:19
CT Intake/Output/Weight
09/16/24 09/16/24 09/17/24
06:59 18:59 06:59
Intake Total 250 / 415.6 909.9 / 909.9
Output Total 550 / 650 150 / 1005 855 / 1005
Balance -300 / -234.4 -150 / -95.1 54.9 / -95.1
SaO2: 99 (2L)
Physical Exam
-
General: Awake, Oriented and AOx3
Cardiovascular: Regular rate & rhythm, No Murmurs, Rub and No Gallop
Respiratory: Decreased Breath Sounds (at bases, otherwise clear)
Sternum: Stable
Incision: Clean, Dry, Intact and Dressing Intact
Extremities: Other (+trace edema)
Data Reviewed
-
Lab Results: Results Reviewed
Medications: Active Meds Reviewed
Chest X-Ray: Report Reviewed and Image Reviewed
ECG: Report Reviewed and Image Reviewed
[2024-09-17 04:11] LABS: Glucose - Point of Care 123 mg/dl (70-99)
[2024-09-17 04:13] LABS: Blood Urea Nitrogen 19 mg/dl (9-20); Calcium 8.7 mg/dl (8.4-10.2); Carbon Dioxide 20 mmol/L (22-30); Chloride 107 mmol/L (98-107); Estimated Creatinine Clearance 69 ml/min; Glucose 125 mg/dl (70-99); Magnesium 2.6 mg/dl (1.6-2.3); Potassium 4.6 mmol/L (3.5-5.1); Sodium 138 mmol/L (135-145); eGFR > 60.00
[2024-09-17 04:28] LABS: Hematocrit 27.7 % (39.0-52.0); Hemoglobin 9.5 g/dL (13.0-18.0); Mean Corp Hgb Conc. 34.3 g/dL (33.0-37.0); Mean Corpuscular Hgb 30.5 pg (27.0-31.0); Mean Corpuscular Volume 89.1 fL (80.0-94.0); Mean Platelet Volume 11.5 fL (7.4-10.4); Platelet Count 119 10^3/uL (130-400); Red Blood Cell Count 3.11 10^6/uL (4.70-6.10); Red Cell Dist. Width 13.2 % (11.5-14.5); White Blood Cell Count 11.3 10^3/uL (4.8-10.8)
[2024-09-17] MEDS: SODIUM BICARBONATE 50 MEQ IV (04:32)
--- NOTE | 2024-09-17 05:30 | PTCARENOTE ---
Patient off Levo and Dobut. AM labs obtained and stable. EKG obtained. Received orders to deline patient. Doris and flora removed without incident at approx 0500. Melendrez to be maintained according to ADRIANE CLAY. AM hygiene care provided.
[2024-09-17 06:27] LABS: Glucose - Point of Care 125 mg/dl (70-99)
[2024-09-17] MEDS: TYLENOL 1000 MG PO ×3 (06:29→23:06)
--- NOTE | 2024-09-17 06:38 | PTCARENOTE ---
While assisting patient oob to chair patient became diaphoretic and unresponsive. Patient had syncopal episode and was assisted back to bed without a fall by two RNs. BP on assessment 143/70 patient quickly became alert and responsive again upon
returning to bed. CT PA notified. Patient will remain in bed for the remainder of this shift.
[2024-09-17 08:06] LABS: Glucose - Point of Care 119 mg/dl (70-99)
--- NOTE | 2024-09-17 08:15 | PTCARENOTE ---
Received pt from client advocate RN; pt AAOx3; pt OOB x2 with RN no light headiness or dizziness; NSR on monitor and VSS; RIJ Cordis and PIV x3 all patent; + rub; Insulin infusing per Glycemic protocol see flow sheet; Lungs diminished; IS to 1000; CT x4
to -20 wall suction, no air leak and no crepitus noted; hypoactive bowel sounds; Melendrez catheter draining clear yellow urine; palpable pulses throughout; trace lower extremity edema noted; all surgical sites C/D/I; see nursing documentation for
further details.
--- NOTE | 2024-09-17 08:27 | CON.INTV ---
Consultation
Consultation Request
Date/Time Consultation Requested: 09/16/2024 - 1811
Date/Time Consultation Performed: 09/17/2024 - 823
Requesting Provider: ROSA Pacheco
Performing Provider: Dr. Bagley
Reason for Consultation: s/p CABG x4
Medical History
-
Chief Complaint: Chest pain/shortness of breath
History of Present Illness:
79-year-old male former tobacco smoker with a past medical history of hypertension, occipital ischemic stroke, hyperlipidemia, ventricular ectopy, history of SUZANNE and BPH who presented to [facility] on 09/11/2024 with chest pain shortness
of breath. Symptoms started few weeks prior but worsened over the past 2 days prior to arrival. He was found to have negative troponins however started on heparin infusion due to concern for ACS. Left heart cath revealed severe left main disease
and RCA disease so patient transferred here to [facility] for evaluation. Cardiothoracic surgery evaluated the patient and reviewed risks and benefits of surgical revascularization and patient agreed to procedure. Intraoperative JUNI
showed mildly reduced LVEF at 45-50% with grade III atheromatous disease of the arch and descending aorta. On 09/12/2024, patient underwent a CABG x 4. There were no immediate complications and he was transferred to the CVICU with bilateral pleural
chest tubes and mediastinal chest tubes x 2 on insulin drip, Precedex, Levophed and dobutamine. [employer] services consulted for additional management/recommendations.
When I saw the patient today he was resting in bed in no acute distress, currently on room air breathing comfortably with saturations 96%. He was extubated on 09/16/2024 to 6 L/min without incident. Current heart rate 76, BP 126/60. Currently on
insulin drip at 1.2 units/h. He has some postoperative chest discomfort but no shortness of breath, SULLIVAN, nausea, fevers or chills.
PMHx: History of ischemic stroke due to presumed small vessel disease (11/2009), dilated aortic root, hypertension, hyperlipidemia, ventricular ectopy, history of near syncope, SUZANNE, colitis, shingles
PSHx: Right inguinal herniography, appendectomy
Past Medical History
Past Medical History: Other (Above as per HPI)
Past Surgical History: Other (Above as per HPI)
Social History
Tobacco: Former Smoker (Quit 37 years ago with history of 2 packs/day for 12 years)
Alcohol: Occasional
Drug: None
Personal:
Living: Alone
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
Family History
Family History: CAD (Father) and Cancer (Mother: Breast cancer)
Allergies / Home Medications
Allergies
Allergy/AdvReac Type Severity Reaction Status Date / Time
No Known Allergies Allergy Unverified 09/12/24 22:54
Home Medications
�Medication �Instructions �Recorded �Confirmed �Last Taken �Type
aspirin 81 mg tablet 81 mg PO DAILY Blood Clot 09/12/24 09/12/24 09/12/24 History
Prevention/Tx
losartan 100 mg tablet 100 mg PO DAILY Blood Pressure 09/12/24 09/12/24 09/12/24 History
rosuvastatin 20 mg tablet 20 mg PO DAILY High Cholesterol 09/12/24 09/12/24 09/12/24 History
tamsulosin 0.4 mg capsule 0.8 mg PO HS Urinary Issue 09/12/24 09/12/24 09/12/24 History
Review of Systems
-
History Source: Patient
All other systems: Negative unless noted
Vitals / Labs / Diagnostic Testing
Vital Signs
Temp Pulse Resp BP Pulse Ox
99.9 F 67 18 95/58 100
09/17/24 08:06 09/17/24 08:30 09/17/24 08:06 09/17/24 08:18 09/17/24 09:06
Lab Data
09/17/24 03:15
09/17/24 03:15
Laboratory Results
09/16/24 09/16/24
19:09 22:47
PT 16.8 H
INR 1.33
APTT 31.3
pH 7.32 L 7.37
pCO2 47 37
pO2 116 H 147 H
HCO3 24.2 21.4
O2 Delivery Level Not Reportable
Microbiology
09/12/24 23:17 Nose MRSA Screen - Final
No Methicillin Resistant Staphylococcus aureus isolated.
Diagnostic Testing:
Physical Exam
-
HEENT: Normocephalic and Anicteric
Cardiovascular: S1/S2, Murmur (GERMÁN heard loudest at RUSB), Rub and Peripheral Edema (negative)
Respiratory: Wheeze (negative), Rhonchi (negative), Non-Labored Respirations and Other (Coarse breath sounds heard bilaterally)
GI: Soft, Non Distended, Non Tender and Normal Bowel Sounds
Neurology: Awake, Alert and Tremors (negative)
Skin: Warm and Dry
General: Respiratory Distress (negative), Comfortable, Fever (negative) and Chills (negative)
Assessment
-
Assessment: 79-year-old male former tobacco smoker with a past medical history of hypertension, occipital ischemic stroke, hyperlipidemia, ventricular ectopy, history of SUZANNE and BPH who presented to [facility] on 09/11/2024 with chest
pain shortness of breath. Symptoms started few weeks prior but worsened over the past 2 days prior to arrival. He was found to have negative troponins however started on heparin infusion due to concern for ACS. Left heart cath revealed severe
left main disease and RCA disease so patient transferred here to [facility] for evaluation. Cardiothoracic surgery evaluated the patient and reviewed risks and benefits of surgical revascularization and patient agreed to procedure.
Intraoperative JUNI showed mildly reduced LVEF at 45-50% with grade III atheromatous disease of the arch and descending aorta. On 09/12/2024, patient underwent a CABG x 4. There were no immediate complications and he was transferred to the CVICU
with bilateral pleural chest tubes and mediastinal chest tubes x 2 on insulin drip, Precedex, Levophed and dobutamine. [employer] services consulted for additional management/recommendations.
When I saw the patient today he was resting in bed in no acute distress, currently on room air breathing comfortably with saturations 96%. He was extubated on 09/16/2024 to 6 L/min without incident. Current heart rate 76, BP 126/60. Currently on
insulin drip at 1.2 units/h. He has some postoperative chest discomfort but no shortness of breath, SULLIVAN, nausea, fevers or chills.
Chronic conditions [employer]LO[employer] SAL[employer]GER: History of occipital ischemic stroke, dilated aortic root, hypertension, hyperlipidemia, ventricular ectopy, history of near syncope, SUZANNE, colitis, shingles
Impression:
#Multivessel CAD including significant left main disease s/p CABG x 4 (POD #1)
#Chronic HFmrEF
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
#Anemia
#Thrombocytopenia
#Hypertension
#Hyperlipidemia
#History of SUZANNE
#History of and occipital ischemic stroke
#Multiple small pulmonary nodules all <[address] chest from 09/13/2024, likely due to benign granulomatous disease
#Former tobacco smoker (Quit 37 years ago with history of 2 packs/day for 12 years)
Plan:
Patient was successfully extubated to nasal cannula on 09/16/2024, and today he is breathing comfortably on room air and saturating 96%
Maintain SpO2 >90-94%
prn nebulized bronchodilators � not currently bronchospastic
Encourage incentive spirometer use q1hr while awake
He does not qualify for lung cancer screening given he quit smoking >15 years ago
Pressors/antihypertensive/inotropes/diuretics will be provided as needed
Maintain MAP>65
Replete electrolytes with K>4, Mg>2
Monitor chest tube output
Monitor hemoglobin
Monitor platelet count and coags
Transfuse blood products as needed to maintain Hb>7g/dL, plt>50k (given post-operative status)
CT surgery managing chest tubes
Monitor blood sugar to maintain euglycemia with goal BG 140-180
Insulin drip per protocol
Aspiration precautions
DVT prophylaxis
Early nutrition
Early mobilization with PT/OT, cardiac rehab consult
[employer] services will continue to follow along while he remains on insulin drip. Once transferred to CVICU�telemetry status and off insulin drip, then we will sign off at that time.
Critical care statement: A total of 37 minutes of critical care time was provided for this patient today. This includes management of ventilator, spontaneous breathing trial, arterial blood gases, pressors, of unstable vital signs, evaluation of the
patient at bedside, reviewing the patient's pertinent medical records including radiographs, microbiology, laboratory evaluations, and discussion with primary team and critical care nursing.
[2024-09-17] MEDS: BACTROBAN 2% OINTMENT 1 APPLIC NASAL ×2 (08:28→20:18)
[2024-09-17] MEDS: LIDOCAINE 4% PATCH 1 PATCH TOPICAL (08:29)
[2024-09-17] MEDS: ROXICODONE 2.5 MG PO ×3 (08:29→20:19)
[2024-09-17] MEDS: SENOKOT-S 1 TABLET PO ×2 (08:29→20:19)
[2024-09-17] MEDS: PLAVIX 75 MG PO (08:29)
[2024-09-17] MEDS: PROTONIX 40 MG PO (08:29)
[2024-09-17] MEDS: NEURONTIN 100 MG PO ×3 (08:29→23:06)
--- NOTE | 2024-09-17 08:35 | W.PN.CD ---
Today's Communication / Plan
-
Cont routine post op care
OOB as possible ISB
Impression / Plan
-
IMPRESSION/PLAN: 79M with hypertension, hyperlipidemia, prior TIA, and BPH who presented to [facility] emergency room 09/11/2024 with chest pain and CARBONE. [facility] showed severe distal left main disease and he was transferred for CABG evaluation.
Primary preforms laminator: Dr. Efren Magallon
MVCAD S/P CABG(KE to LAD, GSV to D3, GSV to OM1, GSV to RPDA) by Dr. Garcia on 09/16/2024
-now extubated and doing well
HTN
-Follow postoperative BP
-Losartan on hold
HLD, LDL 52, on rosuvastatin 20 mg outpatient, on atorvastatin 40 mg by primary service
TIA (2009), without residual deficit
BPH, stable on tamsulosin
SUBJECTIVE:
feels well recovering from surgery
CARDIOVASCULAR DATA:
[facility] 09/12/24: Severe 90% distal left main stenosis, which extends into ostia of LAD and L Circumflex.
Ostium LAD with 90% stenosis with moderate stenosis in the prox to mid vessel.
Circ has 99% subtotal occlusion at the ostium extending from the LM with HÉCTOR -3 flow.
RCA is medium to large vessel that serves large PDA and 3 small-med PLBs. There is 50-60% prox-mid stenosis.
Echo 09/12/24: LVEF 45-50%, mild to moderately dilated left atrium, trivial anterior and posterior pericardial effusion.
Mildly elevated PASP 31 mmHg.
Mildly dilated aortic root, measuring 38 mm in maximal diameter at the level of the coronary sinus of Valsalva. Grade I DD.
Physical Exam
Vital Signs/Labs
Vital Signs
Temp Pulse Resp BP Pulse Ox
99.9 F 70 18 102/51 100
09/17/24 08:06 09/17/24 08:00 09/17/24 08:06 09/17/24 08:00 09/17/24 08:06
09/16/24 09/17/24 09/18/24
06:59 06:59 06:59
Actual Weight 168 lb 13.985 oz 168 lb 10.458 oz
09/17/24 03:15
09/17/24 03:15
PT 16.8 Sec (11.4-14.6) H 09/16/24 19:09
INR 1.33 09/16/24 19:09
APTT 31.3 Sec (23.4-35.0) 09/16/24 19:09
Magnesium 2.6 mg/dl (1.6-2.3) H 09/17/24 03:15
Triglycerides 53 mg/dl (10-149) 09/13/24 06:30
LDL Cholesterol, Calc 52 mg/dl 09/13/24 06:30
VLDL Cholesterol, Calc 10 mg/dl (0-30) 09/13/24 06:30
HDL Cholesterol 81 mg/dl 09/13/24 06:30
Physical Exam
Constitutional: No acute distress and Comfortable
EENT: Anicteric
Cardiovascular: Rhythm & rate is regular
Respiratory: Other (decreased inspiratory effort )
GI: Soft
Neuro/Psych: AO x 3
Data Reviewed
-
Date of Service: September 17, 2024
EKG: Tracing Personally Visualized and interpreted (sr)
Echo: Report Reviewed by me
Labs: Labs Reviewed by me
--- NOTE | 2024-09-17 09:08 | W.PN.ANS.POP ---
Anesthesia Post Operative
- Anesthesia Post Op Note
Vital Signs Stable-See Nursing Note: Yes
Airway Patent: Yes
Adequate Pain Control: Yes
Change in Mental Status: No
Current Postoperative Nausea & Vomiting: No
Anesthesia Complications: No
General Anesthetic Recall: No
Unplanned Admission: No
Post Op Hydration Adequate: Yes
[2024-09-17 10:06] LABS: Glucose - Point of Care 105 mg/dl (70-99)
--- NOTE | 2024-09-17 11:16 | CM ---
Addendum entered by Lori Lu 09/17/24 13:07:
The discharge plan is to return home with his sister staying with him and a home visit by the Transitional Care Nurse when medically stable.
Original Note:
Reviewed chart, Met with Mr. Vargas to review discharge plans. He states he is feeling well. He states prior to admission he resides alone in a two story home with twelve steps to enter He states once he is the home he can stay on the first
floor. His bedroom and full bathroom are on that floor. He states he would only have to go to the lower level to do laundry or go to his office. He states prior to admission he was independent with ambulation and adls. He states he does not have
any DME in the home. He states he has a prescription plan and uses [facility]. He states his sister Shannon Chairez will be coming this Monday to stay with him for seventeen days to assist in his if needed. we reviewed a home visit by the
Transitional Care Nurse. He is agreeable to a home visit. Medical work-up in progress.
[2024-09-17 11:27] LABS: B.E. - POC 0.5 mmol/L; Glucose - POC 124 mg/dl (70-99); HCO3 - POC 26 mmol/L (21-28); Hematocrit - POC 28 % PCV (42-52); Hemodilution- POC Yes; Hemoglobin Calculated - POC 9.5; Ionized Calcium - POC 1.03 mmol/L (1.15-1.33); Lactate - POC < 0.30 mmol/L (0.36-0.75); PCO2 - POC 46 mmHg (35-48); PO2 - POC 385 mmHg (83-108); Potassium - POC 4.9 mmol/L (3.5-5.1); Sodium - POC 137 mmol/L (136-145); Specimen Type - POC Arterial; pH - POC 7.37 (7.35-7.45)
[2024-09-17 12:01] LABS: Glucose - Point of Care 111 mg/dl (70-99)
--- NOTE | 2024-09-17 12:37 | PTCARENOTE ---
NSR on monitor and VSS; Insulin infusing see flow sheet for details; assessment unchanged and family at bedside.
[2024-09-17] MEDS: LR 250 IV (13:33)
--- NOTE | 2024-09-17 17:06 | PTCARENOTE ---
Pt OOB to chair; NSR on monitor and VSS; NSR on monitor and VSS; assessment unchanged.
[2024-09-17] MEDS: NSS IV (17:07)
[2024-09-17] MEDS: LIPITOR 40 MG PO (17:09)
[2024-09-17 18:10] LABS: Glucose - Point of Care 139 mg/dl (70-99)
[2024-09-17 18:10] LABS: Glucose - Point of Care 141 mg/dl (70-99)
[2024-09-17 18:10] LABS: Glucose - Point of Care 130 mg/dl (70-99)
[2024-09-17 19:09] LABS: Glucose - Point of Care 125 mg/dl (70-99)
--- NOTE | 2024-09-17 20:30 | PTCARENOTE ---
Report received from Peyton, SHALONDA. Walking rounds done. Insulin gtt d/c'ed at 1900 per Peyton. Pt awake, alert, oriented x 4. Sitting in chair. Helped back to bed with 2 RNs. 2L/NC applied in bed. Sats 96-97%. BBS present. Decreased B bases. CT x 4 to
-20 cm suction. See flowsheet. Pt in SR, 80's. Audible heart tones. Normotensive. For pulse and wound assessments, see flowsheets. Belly soft, nontender. Passing some flatus. Hypoactive bs x 4. No BM yet. Melendrez to drain, clear, yellow urine. Ongoing
plan of care. Oxycodone 2.5 mg given for 4/10 sternal pain.
[2024-09-17] MEDS: FLOMAX 0.8 MG PO (23:05)
[2024-09-17] MEDS: PACERONE 200 MG PO (23:06)
--- NOTE | 2024-09-17 23:30 | PTCARENOTE ---
CHG bath given. Dressing change done to CT x 4. CPAP/2L/O2 applied as pt goes to sleep.
[2024-09-18] VITALS (15 sets, daily range): BP systolic 92–136; BP diastolic 42–97; PULSE 76–80; O2SAT 97–99; BMI 24.6
--- NOTE | 2024-09-18 03:30 | PTCARENOTE ---
Pt sleeping. Remains in SR with occ PVCs. CPAP with 2L/O2.
--- NOTE | 2024-09-18 05:00 | PTCARENOTE ---
Labs drawn and sent.
[2024-09-18 05:37] LABS: Hematocrit 25.2 % (39.0-52.0); Hemoglobin 8.7 g/dL (13.0-18.0); Mean Corp Hgb Conc. 34.5 g/dL (33.0-37.0); Mean Corpuscular Hgb 31.3 pg (27.0-31.0); Mean Corpuscular Volume 90.6 fL (80.0-94.0); Mean Platelet Volume 11.9 fL (7.4-10.4); Platelet Count 117 10^3/uL (130-400); Red Blood Cell Count 2.78 10^6/uL (4.70-6.10); Red Cell Dist. Width 13.5 % (11.5-14.5); White Blood Cell Count 10.2 10^3/uL (4.8-10.8)
[2024-09-18 06:24] LABS: Blood Urea Nitrogen 29 mg/dl (9-20); Calcium 8.6 mg/dl (8.4-10.2); Carbon Dioxide 27 mmol/L (22-30); Chloride 104 mmol/L (98-107); Estimated Creatinine Clearance 56 ml/min; Glucose 113 mg/dl (70-99); Magnesium 2.3 mg/dl (1.6-2.3); Potassium 4.5 mmol/L (3.5-5.1); Sodium 135 mmol/L (135-145); eGFR > 60.00
[2024-09-18] MEDS: TYLENOL 1000 MG PO ×2 (06:26→21:26)
--- NOTE | 2024-09-18 06:39 | W.PN.CT ---
Today's Communication / Plan
-
-pod #2
-no issues overnight
-Tm 100.5 yesterday- improved, wbc nl. Encourage IS
-CT outputs: 2 meds 35/160, 2 pleur 95/265 in 12/24 hrs
-current meds (ASA, Plavix, Amio, Lipitor, Flomax 0.8, Protonix). Holding BB d/t low BP postop- improving
-UO (Melendrez) 355/730 in 12/24 hrs
-encourage IS, OOB
Assessment / Plan
-
Assessment:
-S/p Median sternotomy/ CABG x 4 (KE to LAD, GSV to D3, GSV to OM1, GSV to RPDA)/Endoscopic/partial open harvest of RLE GSV, by Dr. Yoder, 09/16/24, pod#2
-Severe 3v CAD/90% distal LM
-EF 45-50%, 60-65% postop on dobutamine @ 3 mcg/kg/min per intraop JUNI
-Mild TR
-Trace to mild MR, resolved postop per intraop JUNI
-Small pericardial effusion, resolved postop per intraop JUNI
-Hypertension
-Hyperlipidemia
-BPH/UTI
-Hx of TIA 2009
-SUZANNE, on CPAP at home
-Mildly dilated aortic root 38 mm by Echo 09/12/24 at [facility]
-History of colitis
-History of shingles
-Hx of hepatitis A at age 16
-Former smoker (from age [age])
-S/p Lap appendectomy, 04/2024
-S/p Colonoscopy with polypectomy
-S/p Right inguinal herniorrhaphy
-Acute postop blood loss/Anemia (stable without blood transfusion)
-Acute postop thrombocytopenia (stable without active bleed)
-Acute postop atelectasis
-Acute postop hypovolemia with subsequent hypervolemia
-Acute postop orthostasis
Discussed patient care with: Nursing and Care Team
Subjective
Procedure
S/p Median sternotomy/ CABG x 4 (KE to LAD, GSV to D3, GSV to OM1, GSV to RPDA)/Endoscopic/partial open harvest of RLE GSV, by Dr. Yoder, 09/16/24
-
Date of Service: September 18, 2024
Objective Data
-
Lab Results
09/18/24 05:07
09/18/24 05:07
PT 16.8 Sec (11.4-14.6) H 09/16/24 19:09
INR 1.33 09/16/24 19:09
APTT 31.3 Sec (23.4-35.0) 09/16/24 19:09
Vital Signs
Vital Signs
Temp Pulse Resp BP Pulse Ox
99 F 72 16 100/58 97
09/18/24 01:00 09/18/24 05:00 09/18/24 05:00 09/18/24 04:00 09/18/24 05:00
CT Intake/Output/Weight
09/17/24 09/17/24 09/18/24
06:59 18:59 06:59
Intake Total 971.1 / 971.1 374.1 / 474.1 100 / 474.1
Output Total 1010 / 1160 670 / 1155 485 / 1155
Balance -38.9 / -188.9 -295.9 / -680.9 -385 / -680.9
SaO2: 97
Physical Exam
-
General: Awake and AOx3
Cardiovascular: Regular rate & rhythm, No Murmurs and Rub
Respiratory: Decreased Breath Sounds
Sternum: Stable
Incision: Clean, Dry and Intact
Extremities: Other (trace edema b/l, 2+ DPs b/l)
Abdomen: soft, nontender, nondistended, + bowel sounds
Data Reviewed
-
Lab Results: Results Reviewed
Medications: Active Meds Reviewed
Chest X-Ray: Report Reviewed and Image Reviewed
ECG: Report Reviewed and Image Reviewed
--- NOTE | 2024-09-18 07:48 | PTCARENOTE ---
Pt helped up to chair at 0620. Weighed. Report to Spring kinney am. Parvin d/c'ed at 0745. No c/o pain.
--- NOTE | 2024-09-18 08:00 | PTCARENOTE ---
Assumed care of patient from control clerk food and beverage RN. AAO x 3 Sitting up in the chair. Denies pain. SR on monitor. Room air 99%. Chest tubes x 4 to - 20 cm suction. No air leak or crepitus noted. Abdomen soft and non tender. Melendrez cath removed at
0700, DTV , will monitor. Surgical sites well approximated on bilateral knees. Sternal Dressing c,d,i. Pulases palpable. Plan for day discussed.
[2024-09-18] MEDS: SENOKOT-S 1 TABLET PO (08:08)
[2024-09-18] MEDS: PROTONIX 40 MG PO (08:08)
[2024-09-18] MEDS: PACERONE 200 MG PO ×3 (08:08→21:27)
[2024-09-18] MEDS: LOW STRENGTH ASPIRIN 81 MG PO (08:08)
[2024-09-18] MEDS: NEURONTIN 100 MG PO ×3 (08:08→21:26)
[2024-09-18] MEDS: BACTROBAN 2% OINTMENT 1 APPLIC NASAL ×2 (08:08→20:48)
[2024-09-18] MEDS: LIDOCAINE 4% PATCH TOPICAL (08:08)
[2024-09-18] MEDS: PLAVIX 75 MG PO (08:08)
--- NOTE | 2024-09-18 08:19 | W.PN.CD ---
Today's Communication / Plan
-
Cont post-op care
PVCs noted on tele, BB when able
OOB and ambulating as able, ISB
Impression / Plan
-
IMPRESSION/PLAN: 79M with hypertension, hyperlipidemia, prior TIA, and BPH who presented to [facility] emergency room 09/11/2024 with chest pain and CARBONE. C showed severe distal left main disease and he was transferred for CABG evaluation.
Primary forge operator helper: Dr. Efren Magallon
MVCAD S/P CABG(KE to LAD, GSV to D3, GSV to OM1, GSV to RPDA) by Dr. Garcia on 09/16/2024
-now extubated and doing well
HTN
-Follow postoperative BP, remains low BB as able
-Losartan on hold
HLD, LDL 52, on rosuvastatin 20 mg outpatient, on atorvastatin 40 mg by primary service
TIA (2009), without residual deficit
BPH, stable on tamsulosin
SUBJECTIVE:
Continues to feel improved
CARDIOVASCULAR DATA:
[facility] 09/12/24: Severe 90% distal left main stenosis, which extends into ostia of LAD and L Circumflex.
Ostium LAD with 90% stenosis with moderate stenosis in the prox to mid vessel.
Circ has 99% subtotal occlusion at the ostium extending from the LM with HÉCTOR -3 flow.
RCA is medium to large vessel that serves large PDA and 3 small-med PLBs. There is 50-60% prox-mid stenosis.
Echo 09/12/24: LVEF 45-50%, mild to moderately dilated left atrium, trivial anterior and posterior pericardial effusion.
Mildly elevated PASP 31 mmHg.
Mildly dilated aortic root, measuring 38 mm in maximal diameter at the level of the coronary sinus of Valsalva. Grade I DD.
Physical Exam
Vital Signs/Labs
Vital Signs
Temp Pulse Resp BP Pulse Ox
98.4 F 83 16 111/57 97
09/18/24 08:00 09/18/24 07:00 09/18/24 08:00 09/18/24 06:27 09/18/24 08:00
09/17/24 09/18/24 09/19/24
06:59 06:59 06:59
Actual Weight 168 lb 10.458 oz 171 lb 8.314 oz
09/18/24 05:07
09/18/24 05:07
PT 16.8 Sec (11.4-14.6) H 09/16/24 19:09
INR 1.33 09/16/24 19:09
APTT 31.3 Sec (23.4-35.0) 09/16/24 19:09
Magnesium 2.3 mg/dl (1.6-2.3) 09/18/24 05:07
Triglycerides 53 mg/dl (10-149) 09/13/24 06:30
LDL Cholesterol, Calc 52 mg/dl 09/13/24 06:30
VLDL Cholesterol, Calc 10 mg/dl (0-30) 09/13/24 06:30
HDL Cholesterol 81 mg/dl 09/13/24 06:30
Physical Exam
Constitutional: No acute distress and Comfortable
EENT: Anicteric
Cardiovascular: Rhythm & rate is regular
Respiratory: Other (decreased b/s b/l )
GI: Soft
Neuro/Psych: AO x 3
Data Reviewed
-
Date of Service: September 18, 2024
EKG: Tracing Personally Visualized and interpreted (sr)
Echo: Report Reviewed by me
Labs: Labs Reviewed by me
--- NOTE | 2024-09-18 08:25 | W.PN.INTV ---
Today's Communication / Plan
Recommendations
Up OOB as tolerated
Goal BG 140�180
prn DuoNebs
DAPT with aspirin + Plavix
PO amiodarone
Currently coughing up phlegm but has no difficulty expectorating � continue to monitor
Patient is being downgraded to IVU level care. No additional recommendations at this time. Telecommunications Professional/Pulmonary service will now sign off. Please reconsult if there are any additional questions/concerns, or if patient's respiratory status
deteriorates.
Assessment
-
Assessment: 79-year-old male former tobacco smoker with a past medical history of hypertension, occipital ischemic stroke, hyperlipidemia, ventricular ectopy, history of SUZANNE and BPH who presented to [facility] on 09/11/2024 with chest
pain shortness of breath. Symptoms started few weeks prior but worsened over the past 2 days prior to arrival. He was found to have negative troponins however started on heparin infusion due to concern for ACS. Left heart cath revealed severe
left main disease and RCA disease so patient transferred here to [facility] for evaluation. Cardiothoracic surgery evaluated the patient and reviewed risks and benefits of surgical revascularization and patient agreed to procedure.
Intraoperative JUNI showed mildly reduced LVEF at 45-50% with grade III atheromatous disease of the arch and descending aorta. On 09/12/2024, patient underwent a CABG x 4. There were no immediate complications and he was transferred to the CVICU
with bilateral pleural chest tubes and mediastinal chest tubes x 2 on insulin drip, Precedex, Levophed and dobutamine. Telecommunications Professional services consulted for additional management/recommendations.
When I saw the patient today he was resting in bed in no acute distress, currently on room air breathing comfortably with saturations 96%. He was extubated on 09/16/2024 to 6 L/min without incident. Current heart rate 76, BP 126/60. Currently on
insulin drip at 1.2 units/h. He has some postoperative chest discomfort but no shortness of breath, SULLIVAN, nausea, fevers or chills.
Chronic conditions DIRECTOR BANKING: History of occipital ischemic stroke, dilated aortic root, hypertension, hyperlipidemia, ventricular ectopy, history of near syncope, SUZANNE, colitis, shingles
Impression:
#Multivessel CAD including significant left main disease s/p CABG x 4 (POD #2)
#Chronic HFmrEF
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
#Anemia
#Thrombocytopenia
#Hypertension
#Hyperlipidemia
#History of SUZANNE
#History of and occipital ischemic stroke
#Multiple small pulmonary nodules all <[address] chest from 09/13/2024, likely due to benign granulomatous disease
#Former tobacco smoker (quit 37 years ago with history of 2 packs/day for 12 years)
Plan:
Patient was successfully extubated to nasal cannula on 09/16/2024, and today he is continuing to breathe comfortably on room air and saturating 99%
Maintain SpO2 >90-94%
prn nebulized bronchodilators � not currently bronchospastic
Encourage incentive spirometer use q1hr while awake
He does not qualify for lung cancer screening given he quit smoking >15 years ago
Pressors/antihypertensive/inotropes/diuretics will be provided as needed
Maintain MAP>65
Replete electrolytes with K>4, Mg>2
Chest tubes now removed as of this morning
Monitor hemoglobin
Monitor platelet count and coags
Transfuse blood products as needed to maintain Hb>7g/dL, plt>50k (given post-operative status)
Monitor blood sugar to maintain euglycemia with goal BG 140-180
Insulin drip now off; continue ISS to maintain BG goal as above
Aspiration precautions
DVT prophylaxis
Early nutrition
Early mobilization with PT/OT, cardiac rehab consult
Patient is being downgraded to IVU level care. No additional recommendations at this time. Telecommunications Professional/Pulmonary service will now sign off. Thank you for allowing us to be involved in the care of this patient. Please reconsult if there are any
additional questions/concerns, or if patient's respiratory status deteriorates.
Total time spent today was 57 minutes for this encounter. Time includes reviewing laboratory test/imaging results, reviewing pertinent medical records, obtaining and reviewing medical history, performing an appropriate exam, ordering medications,
tests and procedures. Time also includes documentation of this encounter, coordinating patient care and communicating with other healthcare professionals. Total time does not include separately billed tests performed on this date of service.
Subjective Dataa
Subjective Data
Date of Service:
Date of Service: September 18, 2024
Chief Complaint: Telecommunications Professional Follow Up
Subjective:
Patient seen and evaluated today at bedside. Coughing up phlegm without issue otherwise denies shortness of breath or chest pain. He says he feels excellent overall. Currently on room air saturating 99%. He is off the insulin drip. Chest tubes
also removed this morning. Heart rate 83 and BP 102/47.
Review of Systems
General: Other (Negative unless mentioned above)
Objective Data
Data Reviewed
Vital Signs / I&O / Oxygen:
Vital Signs
Temp Pulse Resp BP Pulse Ox
98.4 F 79 16 101/52 98
09/18/24 08:00 09/18/24 08:30 09/18/24 08:00 09/18/24 08:02 09/18/24 08:02
Intake and Output
09/17/24 09/18/24 09/19/24
06:59 06:59 06:59
Intake Total 971.1 / 971.1 484.1 / 484.1 370 / 370
Output Total 1160 / 1160 1185 / 1185 85 / 85
Balance -188.9 / -188.9 -700.9 / -700.9 285 / 285
SaO2 [SIMV] 98
SaO2 98
Nasal Cannula flow liters per 2
minute
Physical Exam
General: Respiratory Distress (negative), Comfortable, Chills (negative) and Sweats (negative)
HEENT: Normocephalic, Anicteric and Other (R-IJ cordis in place)
Cardiovascular: S1-S2 and Peripheral Edema (negative)
Respiratory: Wheeze (negative), Crackles (negative), Rhonchi (negative), Non-Labored Respirations and Stridor (negative)
GI: Soft, Non Distended, Non Tender and Normal Bowel Sounds
Neurology: AO x 3 and Tremors (negative)
Skin: Warm, Dry, Cyanosis (negative) and Jaundice (negative)
Labs/Micro/Reports
Lab Data
09/18/24 05:07
09/18/24 05:07
--- NOTE | 2024-09-18 09:30 | PTCARENOTE ---
Chest tubes removed by RN x 2, pt tolerated w/o issue.
--- NOTE | 2024-09-18 10:37 | PN.CDI ---
CDI
- -
CDI:
Physician Documentation Request
Admit Date: 09/12/24 22:44
Dear Doctor Paresh,
Patient is admitted with CAD and underwent bypass x 4.
Critical care/pulmonary consultation includes a diagnosis of Chronic HFmrEF.
Patient does not take diuretics as an outpatient.
No history noted in H&P.
Please clarify the following:
____ - Chronic HFmrEF is a valid diagnosis
____ - Chronic HFmrEF was ruled out
____ - Other
Use of terms such as suspected, likely, concern for, or probable (associated with a specific diagnosis that is being evaluated, monitored, or treated as if it exists) are acceptable and can be coded in the inpatient setting, when documented at the
time of discharge.
Thank you,
Maria Elena Hopkins RN, BSN
CDI Specialist
tiger text
Please use your independent medical judgment in providing your response.
--- NOTE | 2024-09-18 11:12 | CM ---
Reviewed chart. Met with Mr. Vargas to review discharge plans. He states he is feeling a lot better. He states he ambulated in the hallway today. We reviewed a home visit by the Transitional Care Nurse. He is agreeable to a home visit. Prior
to admission he resides in a two story home with twelev steps to enter. He can stay on the first floor once inside the home. His bedroom/full bathroom are on the first floor. Prior to admission he was independent with ambulation and adls. He does
not have any DME in the home. His sister Shannon Chairez will be coming in on Monday to stay with his for seventeen day to assist in his care if needed. He states if he goes home before Monday his other sister who resides locally and pick him up
and get him settled at home. Medial work-up in progress. The discharge plan is to return home with his sister staying with him and a home visit by the Transitional Care Nurse when medically stable.
--- NOTE | 2024-09-18 11:55 | PTCARENOTE ---
Sitting up in chair after ambulating in hallway with cardiac rehab. Denies pain or SOB. VSS. Assessment unchanged from prior.
[2024-09-18] MEDS: TYLENOL PO (14:35)
[2024-09-18] MEDS: NSS IV (15:32)
--- NOTE | 2024-09-18 16:00 | PTCARENOTE ---
Ambulated in hallway with RN. Gait steady, no Sob noted. Tolerated approx 400 feet. VSS. Assessment otherwise unchanged from prior.
[2024-09-18] MEDS: LIPITOR 40 MG PO (18:10)
--- NOTE | 2024-09-18 20:00 | PTCARENOTE ---
Assumed care of patient at 1900. Patient found oob in chair at time of assessment. Patient is AOx4, follows commands appropriately, moves all extremities. saO2 96% on RA, LS are diminished in the bases, patient wears CPAP HS. Heart sounds are
audible, patient is in SR with occasional monomorphic PVCs on the monitor, patient has normal palpable pulses, and no observable edema. Patient has active BS throughout all four quadrants, passing flatus, voiding clear yellow urine. There is a
sternal incision with aquacell dressing that is CDI, R groin puncture approx with surg adhesive FLY RAIL OPERATOR, L medial thigh puncture approx with surg adhesive FLY RAIL OPERATOR, RLE incision approx with surg adhesive DONALDO, LLE inceision approx with surg adhesive DONALDO, and
ABD dressing over CT wounds that is CDI. Patient has R IJ cordis receiving KVO and R arm PIVx2 and L arm PIV. VSS. Call jimenez within reach. Restarting 12.5 Lopressor tonight.
[2024-09-18] MEDS: SENOKOT-S PO (20:48)
[2024-09-18] MEDS: LOPRESSOR 12.5 MG PO (20:48)
[2024-09-18] MEDS: FLOMAX 0.8 MG PO (21:26)
[2024-09-19] VITALS (20 sets, daily range): BP systolic 84–118; BP diastolic 50–67; PULSE 71–81; O2SAT 95–99; BMI 24.5
--- NOTE | 2024-09-19 | PTCARENOTE ---
Patient reassessed. VSS. No c/o pain. Assisted patient oob to toilet for large soft formed BM without incident. On manager monitoring SR with PVCs and some PACs. Call jimenez within reach.
[2024-09-19 03:33] LABS: Hematocrit 24.1 % (39.0-52.0); Hemoglobin 8.2 g/dL (13.0-18.0); Mean Corpuscular Hgb 31.2 pg (27.0-31.0); Mean Corpuscular Volume 91.6 fL (80.0-94.0); Mean Platelet Volume 11.6 fL (7.4-10.4); Platelet Count 119 10^3/uL (130-400); Red Blood Cell Count 2.63 10^6/uL (4.70-6.10); Red Cell Dist. Width 13.7 % (11.5-14.5); White Blood Cell Count 9.5 10^3/uL (4.8-10.8)
--- NOTE | 2024-09-19 03:53 | W.PN.CT ---
Addendum entered and electronically signed by Sharon Llanes PA-C 09/19/24 11:15:
CDI:
HFmrEF is not a valid diagnosis, pt has reduced EF with no clinical signs of heart failure
ICM with EF 40-45% is a valid diagnosis
Original Note:
Today's Communication / Plan
-
pod#3
- DC IJ
- increase ambulation
- continue ASA, Plavix, statin, beta-willard
- uses CPAP setting 8 HS>now 96% R/A
Assessment / Plan
-
Assessment:
-S/p Median sternotomy/ CABG x 4 (KE to LAD, GSV to D3, GSV to OM1, GSV to RPDA)/Endoscopic/partial open harvest of RLE GSV, by Dr. Yoder, 09/16/24, pod#3
-Severe 3v CAD/90% distal LM
-EF 45-50%, 60-65% postop on dobutamine @ 3 mcg/kg/min per intraop JUNI
-Mild TR
-Trace to mild MR, resolved postop per intraop JUIN
-Small pericardial effusion, resolved postop per intraop JUNI
-Hypertension
-Hyperlipidemia
-BPH/UTI
-Hx of TIA 2009
-SUZANNE, on CPAP at home
-Mildly dilated aortic root 38 mm by Echo 09/12/[address] [facility]
-History of colitis
-History of shingles
-Hx of hepatitis A at age 16
-Former smoker (from age [age])
-S/p Lap appendectomy, 04/2024
-S/p Colonoscopy with polypectomy
-S/p Right inguinal herniorrhaphy
-Acute postop blood loss/Anemia (stable without blood transfusion)
-Acute postop thrombocytopenia (stable without active bleed)
-Acute postop atelectasis
-Acute postop hypovolemia with subsequent hypervolemia
-Acute postop orthostasis
Discussed patient care with: Cardiology and Nursing
Subjective
Procedure
S/p Median sternotomy/ CABG x 4 (KE to LAD, GSV to D3, GSV to OM1, GSV to RPDA)/Endoscopic/partial open harvest of RLE GSV, by Dr. Yoder, 09/16/24
- no significant events overnight
-
Date of Service: September 19, 2024
Objective Data
-
Lab Results
09/19/24 03:20
PT 16.8 Sec (11.4-14.6) H 09/16/24 19:09
INR 1.33 09/16/24 19:09
APTT 31.3 Sec (23.4-35.0) 09/16/24 19:09
Vital Signs
Vital Signs
Temp Pulse Resp BP Pulse Ox
98.2 F 71 18 107/60 96
09/19/24 03:00 09/19/24 03:15 09/19/24 03:00 09/19/24 03:15 09/19/24 03:15
CT Intake/Output/Weight
09/18/24 09/18/24 09/19/24
06:59 18:59 06:59
Intake Total 110 / 484.1 920 / 930 10 / 930
Output Total 515 / 1185 785 / 1335 550 / 1335
Balance -405 / -700.9 135 / -405 -540 / -405
SaO2: 96
Physical Exam
-
General: AOx3
Cardiovascular: Regular rate & rhythm
Respiratory: Clear
Sternum: Stable
Incision: Clean, Dry and Intact
Extremities: No Edema
Data Reviewed
-
Lab Results: Results Reviewed
Medications: Active Meds Reviewed
Chest X-Ray: Image Reviewed
CT Scan: Image Reviewed
ECG: Image Reviewed
[2024-09-19 03:56] LABS: Blood Urea Nitrogen 20 mg/dl (9-20); Calcium 8.5 mg/dl (8.4-10.2); Carbon Dioxide 28 mmol/L (22-30); Chloride 107 mmol/L (98-107); Estimated Creatinine Clearance 62 ml/min; Glucose 108 mg/dl (70-99); Magnesium 2.1 mg/dl (1.6-2.3); Potassium 4.4 mmol/L (3.5-5.1); Sodium 136 mmol/L (135-145); eGFR > 60.00
--- NOTE | 2024-09-19 04:39 | PTCARENOTE ---
Patient reassessed. Remains SR with PVCs and PACs on the monitor. No c/o pain. AM labs obtained. AM hygiene care provided. Call jimenez within reach.
[2024-09-19] MEDS: TYLENOL 1000 MG PO ×3 (06:40→21:34)
--- NOTE | 2024-09-19 08:00 | PTCARENOTE ---
report received from previous RN at change of shift. Pt OOB in chair, resting comfortably. pt denies pain. AAOX4. SR on telemetry. pulses palpable. trace edema. pt on room air, sat 98%. lung sounds diminished in bases. IS 2000. active bowel sounds,
reports had soft BM yesterday. voiding in urinal no issues. surgical sites CDI. pt updated on plan of care. see worklist for full nursing assessment and interventions.
--- NOTE | 2024-09-19 08:15 | W.PN.CD ---
Today's Communication / Plan
-
Cont post-op care
PVCs noted on tele, cont. BB
OOB and ambulating as able
Impression / Plan
-
IMPRESSION/PLAN: 79M with hypertension, hyperlipidemia, prior TIA, and BPH who presented to [facility] emergency room 09/11/2024 with chest pain and CARBONE. [facility] showed severe distal left main disease and he was transferred for CABG evaluation.
Primary women's garment fitter: Dr. Efren Magallon
MVCAD S/P CABG(KE to LAD, GSV to D3, GSV to OM1, GSV to RPDA) by Dr. Garcia on 09/16/2024
-now extubated and doing well
HTN
-Follow postoperative BP
-cont. low dose BB
-Losartan on hold, restart at low dose prior to discharge if able
HLD, LDL 52, on rosuvastatin 20 mg outpatient, on atorvastatin 40 mg by primary service
TIA (2009), without residual deficit
BPH, stable on tamsulosin
SUBJECTIVE:
Continues to feel improved, looking forward to possible discharge tomorrow
CARDIOVASCULAR DATA:
[facility] 09/12/24: Severe 90% distal left main stenosis, which extends into ostia of LAD and L Circumflex.
Ostium LAD with 90% stenosis with moderate stenosis in the prox to mid vessel.
Circ has 99% subtotal occlusion at the ostium extending from the LM with HÉCTOR -3 flow.
RCA is medium to large vessel that serves large PDA and 3 small-med PLBs. There is 50-60% prox-mid stenosis.
Echo 09/12/24: LVEF 45-50%, mild to moderately dilated left atrium, trivial anterior and posterior pericardial effusion.
Mildly elevated PASP 31 mmHg.
Mildly dilated aortic root, measuring 38 mm in maximal diameter at the level of the coronary sinus of Valsalva. Grade I DD.
Physical Exam
Vital Signs/Labs
Vital Signs
Temp Pulse Resp BP Pulse Ox
36.8 C 71 18 107/60 96
09/19/24 03:00 09/19/24 03:15 09/19/24 03:00 09/19/24 03:15 09/19/24 03:53
09/18/24 09/19/24 09/20/24
06:59 06:59 06:59
Actual Weight 77.8 kg 77.4 kg
09/19/24 03:20
09/19/24 03:20
PT 16.8 Sec (11.4-14.6) H 09/16/24 19:09
INR 1.33 09/16/24 19:09
APTT 31.3 Sec (23.4-35.0) 09/16/24 19:09
Magnesium 2.1 mg/dl (1.6-2.3) 09/19/24 03:20
Triglycerides 53 mg/dl (10-149) 09/13/24 06:30
LDL Cholesterol, Calc 52 mg/dl 09/13/24 06:30
VLDL Cholesterol, Calc 10 mg/dl (0-30) 09/13/24 06:30
HDL Cholesterol 81 mg/dl 09/13/24 06:30
Physical Exam
Constitutional: No acute distress and Comfortable
Cardiovascular: Rhythm & rate is regular
Respiratory: Respiratory effort normal
Neuro/Psych: AO x 3
Data Reviewed
-
Date of Service: September 19, 2024
Medical Decision Making: Reviewed Test Results
EKG: Tracing Personally Visualized and interpreted
Labs: Labs Reviewed by me
[2024-09-19] MEDS: LOW STRENGTH ASPIRIN 81 MG PO (08:51)
[2024-09-19] MEDS: NEURONTIN 100 MG PO ×3 (08:51→21:36)
[2024-09-19] MEDS: LOPRESSOR 12.5 MG PO ×2 (08:51→19:48)
[2024-09-19] MEDS: PROTONIX 40 MG PO (08:51)
[2024-09-19] MEDS: LOPRESSOR PO (08:51)
[2024-09-19] MEDS: PACERONE 200 MG PO ×3 (08:52→21:34)
[2024-09-19] MEDS: LIDOCAINE 4% PATCH TOPICAL ×2 (08:52→08:58)
[2024-09-19] MEDS: PLAVIX 75 MG PO (08:52)
[2024-09-19] MEDS: BACTROBAN 2% OINTMENT 1 APPLIC NASAL ×2 (08:52→19:48)
[2024-09-19] MEDS: SENOKOT-S PO (08:56)
--- NOTE | 2024-09-19 11:02 | CM ---
Reviewed chart. Met with Mr. Vargas to review discharge plans. He states he is feeling well and maybe able to go home soon. He states his brother will provide transportation and his sister will see him at the house. His other sister Shannon Chairez "Celia"will be flying in on Monday to stay with him for seventeen days. Prior to admission he resides alone in a two story home with twelve steps to enter. He has a first floor set-up. Prior to admission he was independent with ambulation and adls. He
does not have any DME in the home. We reviewed a home visit by the Transitional Care Nurse. He is agreeable to a home visit. Medical work-up in progress. The discharge plan is to return home with his sister staying with him and a home visit by the
Transitional Care Nurse when medically stable.
--- NOTE | 2024-09-19 12:16 | PTCARENOTE ---
pt resting comfortably OOB in chair. denies pain. SR on telemetry heart rate in 80s. 100% on room air. no changes in assessment noted.
--- NOTE | 2024-09-19 13:34 | PTCARENOTE ---
RIJ cordis removed without incident.
--- NOTE | 2024-09-19 13:35 | PTCARENOTE ---
Rec'd Pt A,A+Ox3, transferred from CVICU. No c/o pain.
[2024-09-19] MEDS: LIPITOR 40 MG PO (18:35)
[2024-09-19] MEDS: NSS IV (18:36)
[2024-09-19] MEDS: SENOKOT-S 1 TABLET PO (19:48)
[2024-09-19] MEDS: FLOMAX 0.8 MG PO (21:34)
[2024-09-20] VITALS (8 sets, daily range): BP systolic 98–123; BP diastolic 57–66; PULSE 75–82; O2SAT 96–99; BMI 24.5
--- NOTE | 2024-09-20 01:28 | W.PN.CT ---
Today's Communication / Plan
-
-pod #4
-doing well, no complaints, no issues overnight, wants to go home
-follow 2v-CXR
-current meds (ASA, Plavix, Lipitor, Lopressor 12.5 bid, Amio, Flomax, Protonix)
-encourage IS, OOB, ambulate
-possible d/c
Assessment / Plan
-
Assessment:
-S/p Median sternotomy/ CABG x 4 (KE to LAD, GSV to D3, GSV to OM1, GSV to RPDA)/Endoscopic/partial open harvest of RLE GSV, by Dr. Yoder, 09/16/24, pod#4
-Severe 3v CAD/90% distal LM
-EF 45-50%, 60-65% postop on dobutamine @ 3 mcg/kg/min per intraop JUNI
-Mild TR
-Trace to mild MR, resolved postop per intraop JUNI
-Small pericardial effusion, resolved postop per intraop JUNI
-Hypertension
-Hyperlipidemia
-BPH/UTI
-Hx of TIA 2009
-SUZANNE, on CPAP at home
-Mildly dilated aortic root 38 mm by Echo 09/12/24 at [facility]
-History of colitis
-History of shingles
-Hx of hepatitis A at age 16
-Former smoker (from age [age])
-S/p Lap appendectomy, 04/2024
-S/p Colonoscopy with polypectomy
-S/p Right inguinal herniorrhaphy
-Acute postop blood loss/Anemia (stable without blood transfusion)
-Acute postop thrombocytopenia (stable without active bleed)
-Acute postop atelectasis
-Acute postop hypovolemia with subsequent hypervolemia
-Acute postop orthostasis
Discussed patient care with: Nursing and Care Team
Subjective
Procedure
S/p Median sternotomy/ CABG x 4 (KE to LAD, GSV to D3, GSV to OM1, GSV to RPDA)/Endoscopic/partial open harvest of RLE GSV, by Dr. Yoder, 09/16/24
- no significant events overnight
-
Date of Service: September 20, 2024
Objective Data
-
PT 16.8 Sec (11.4-14.6) H 09/16/24 19:09
INR 1.33 09/16/24 19:09
APTT 31.3 Sec (23.4-35.0) 09/16/24 19:09
Vital Signs
Vital Signs
Temp Pulse Resp BP Pulse Ox
98.2 F 67 18 95/50 97
09/19/24 22:43 09/19/24 22:43 09/19/24 22:43 09/19/24 22:43 09/19/24 22:43
CT Intake/Output/Weight
09/19/24 09/19/24 09/20/24
06:59 18:59 06:59
Intake Total 10 / 1420 530 / 730 200 / 730
Output Total 550 / 1535 200 / 200
Balance -540 / -115 330 / 530 200 / 530
SaO2: 97
Physical Exam
-
General: Awake and AOx3
Cardiovascular: Regular rate & rhythm, No Murmurs and No Rub
Respiratory: Clear
Sternum: Stable
Incision: Clean, Dry and Dressing Intact
Extremities: Edema +1 (2+ DPs b/l)
Abdomen: soft,nontender, nondistended, + bowel sounds
Data Reviewed
-
Lab Results: Results Reviewed
Medications: Active Meds Reviewed
Chest X-Ray: Report Reviewed and Image Reviewed
ECG: Report Reviewed and Image Reviewed
[2024-09-20 03:44] LABS: Hematocrit 24.1 % (39.0-52.0); Hemoglobin 8.1 g/dL (13.0-18.0); Mean Corp Hgb Conc. 33.6 g/dL (33.0-37.0); Mean Corpuscular Hgb 31.5 pg (27.0-31.0); Mean Corpuscular Volume 93.8 fL (80.0-94.0); Mean Platelet Volume 11.1 fL (7.4-10.4); Platelet Count 130 10^3/uL (130-400); Red Blood Cell Count 2.57 10^6/uL (4.70-6.10); Red Cell Dist. Width 13.5 % (11.5-14.5); White Blood Cell Count 7.4 10^3/uL (4.8-10.8)
[2024-09-20 04:07] LABS: Blood Urea Nitrogen 23 mg/dl (9-20); Calcium 8.9 mg/dl (8.4-10.2); Carbon Dioxide 26 mmol/L (22-30); Chloride 104 mmol/L (98-107); Estimated Creatinine Clearance 56 ml/min; Glucose 102 mg/dl (70-99); Magnesium 2.2 mg/dl (1.6-2.3); Potassium 4.4 mmol/L (3.5-5.1); Sodium 137 mmol/L (135-145); eGFR > 60.00
[2024-09-20] MEDS: TYLENOL 1000 MG PO (06:00)
[2024-09-20] MEDS: LASIX 40 MG IV (08:55)
[2024-09-20] MEDS: BACTROBAN 2% OINTMENT 1 APPLIC NASAL (08:56)
[2024-09-20] MEDS: PROTONIX 40 MG PO (08:56)
[2024-09-20] MEDS: PACERONE 200 MG PO (08:57)
[2024-09-20] MEDS: LOW STRENGTH ASPIRIN 81 MG PO (08:57)
[2024-09-20] MEDS: TOPROL XL 25 MG PO (08:57)
[2024-09-20] MEDS: NEURONTIN 100 MG PO (08:58)
[2024-09-20] MEDS: SENOKOT-S 1 TABLET PO (08:58)
[2024-09-20] MEDS: PLAVIX 75 MG PO (08:58)
[2024-09-20] MEDS: LIDOCAINE 4% PATCH TOPICAL (09:21)
--- NOTE | 2024-09-20 13:34 | W.PN.CD ---
Today's Communication / Plan
-
discharge
reinitiate RASS as outpatient
Impression / Plan
-
IMPRESSION/PLAN: 79M with hypertension, hyperlipidemia, prior TIA, and BPH who presented to [facility] emergency room 09/11/2024 with chest pain and CARBONE. [facility] showed severe distal left main disease and he was transferred for CABG evaluation.
Primary laboratory sample carrier: Dr. Efren Magallon
MVCAD s/p CABG (KE to LAD, GSV to D3, GSV to OM1, GSV to RPDA) by Dr. Garcia on 09/16/2024
-now extubated and doing well
HTN
-Follow postoperative BP
-cont. low dose BB
-Losartan on hold, restart at low dose prior to discharge if able
HLD, LDL 52, on rosuvastatin 20 mg outpatient, on atorvastatin 40 mg by primary service
TIA (2009), without residual deficit
BPH, stable on tamsulosin
SUBJECTIVE:
Feels great
Looking forward to discharge today
CARDIOVASCULAR DATA:
C 09/12/24: Severe 90% distal left main stenosis, which extends into ostia of LAD and L Circumflex.
Ostium LAD with 90% stenosis with moderate stenosis in the prox to mid vessel.
Circ has 99% subtotal occlusion at the ostium extending from the LM with HÉCTOR -3 flow.
RCA is medium to large vessel that serves large PDA and 3 small-med PLBs. There is 50-60% prox-mid stenosis.
Echo 09/12/24: LVEF 45-50%, mild to moderately dilated left atrium, trivial anterior and posterior pericardial effusion.
Mildly elevated PASP 31 mmHg.
Mildly dilated aortic root, measuring 38 mm in maximal diameter at the level of the coronary sinus of Valsalva. Grade I DD.
Physical Exam
Vital Signs/Labs
Vital Signs
Temp Pulse Resp BP Pulse Ox
36.8 C 77 16 119/63 99
09/20/24 08:54 09/20/24 11:49 09/20/24 08:54 09/20/24 11:49 09/20/24 10:07
09/19/24 09/20/24 09/21/24
06:59 06:59 06:59
Actual Weight 77.4 kg 77.3 kg
09/20/24 03:30
09/20/24 03:30
PT 16.8 Sec (11.4-14.6) H 09/16/24 19:09
INR 1.33 09/16/24 19:09
APTT 31.3 Sec (23.4-35.0) 09/16/24 19:09
Magnesium 2.2 mg/dl (1.6-2.3) 09/20/24 03:30
Triglycerides 53 mg/dl (10-149) 09/13/24 06:30
LDL Cholesterol, Calc 52 mg/dl 09/13/24 06:30
VLDL Cholesterol, Calc 10 mg/dl (0-30) 09/13/24 06:30
HDL Cholesterol 81 mg/dl 09/13/24 06:30
Physical Exam
Constitutional: No acute distress
Cardiovascular: Rhythm & rate is regular
Respiratory: Respiratory effort normal
Neuro/Psych: AO x 3
Data Reviewed
-
Date of Service: September 20, 2024
--- NOTE | 2024-09-20 13:57 | PTCARENOTE ---
Patient discharge to home. Teaching provided, verbalized understanding. Patient showered, IV and telemetry removed. Patient escorted to main lobby in a wheelchair
== END 2024-09-20 13:52 | disposition home or self-care (01) | DRG 236 ==
LOC: IVU 22:44
PROVIDERS: Clinical Nurse Specialist Acute Care; Nurse Practitioner; Physician Assistant Medical; Student in an Organized Health Care Education/Training Program; ADMITTING PHYSICIAN Thoracic Surgery (Cardiothoracic Vascular Surgery); ATTENDING PHYSICIAN Thoracic Surgery (Cardiothoracic Vascular Surgery); CONSULT PHYSICIAN Internal Medicine Cardiovascular Disease; FAMILY PHYSICIAN Internal Medicine; OTHER PHYSICIAN Internal Medicine Critical Care Medicine
PROC: 5A09357 Assistance with Respiratory Ventilation, Less than 24 Consecutive Hours, Continuous Positive Airway Pressure (ICD-10-PCS; 2024-09-13)
PROC: 02100ZC Bypass Coronary Artery, One Artery from Thoracic Artery, Open Approach (ICD-10-PCS; 2024-09-16)
PROC: 021209W Bypass Coronary Artery, Three Arteries from Aorta with Autologous Venous Tissue, Open Approach (ICD-10-PCS; 2024-09-16)
PROC: B24BZZ4 Ultrasonography of Heart with Aorta, Transesophageal (ICD-10-PCS; 2024-09-16)
PROC: 06BQ4ZZ Excision of Left Saphenous Vein, Percutaneous Endoscopic Approach (ICD-10-PCS; 2024-09-16)
PROC: 06BP4ZZ Excision of Right Saphenous Vein, Percutaneous Endoscopic Approach (ICD-10-PCS; 2024-09-16)
PROC: 5A1221Z Performance of Cardiac Output, Continuous (ICD-10-PCS; 2024-09-16)
DX: I25.110 Atherosclerotic heart disease of native coronary artery with unstable angina pectoris (principal); D62 Acute posthemorrhagic anemia; J98.11 Atelectasis; I31.39 Other pericardial effusion (noninflammatory); E78.5 Hyperlipidemia, unspecified; N40.0 Benign prostatic hyperplasia without lower urinary tract symptoms; D69.6 Thrombocytopenia, unspecified; E86.1 Hypovolemia; E87.70 Fluid overload, unspecified; I10 Essential (primary) hypertension; R91.8 Other nonspecific abnormal finding of lung field; G47.33 Obstructive sleep apnea (adult) (pediatric); I77.810 Thoracic aortic ectasia; I49.3 Ventricular premature depolarization; I70.0 Atherosclerosis of aorta; Z60.2 Problems related to living alone; Z87.440 Personal history of urinary (tract) infections; Z86.73 Personal history of transient ischemic attack (TIA), and cerebral infarction without residual deficits; Z87.891 Personal history of nicotine dependence; Z86.19 Personal history of other infectious and parasitic diseases; Z87.19 Personal history of other diseases of the digestive system; Z86.0100 Personal history of colon polyps, unspecified; Z90.49 Acquired absence of other specified parts of digestive tract; Z82.49 Family history of ischemic heart disease and other diseases of the circulatory system; Z83.3 Family history of diabetes mellitus; Z80.3 Family history of malignant neoplasm of breast; Z79.82 Long term (current) use of aspirin
CPT/HCPCS: 71045; 71046; 71250; 80048; 80053; 80061; 81003; 81015; 82248; 82330; 82565; 82805; 82810; 82947; 82962; 83036; 83735; 84132; 84302; 84520; 85014; 85018; 85027; 85049; 85610; 85730; 86850; 86900; 86901; 86920; 87070; 93005; 93312; 93320; 93325; 93880; 94002; 94660; P9045